=== PATIENT | male | born 1955 | race Caucasian/White ===

== ENCOUNTER 2018-10-12 12:37 | Inpatient (IN) | payer MEDICARE, MEDICAID ==
--- NOTE | 2018-10-12 13:09 | ED ---
Complex/Multi-Sys Presentation - HPI Summary HPI Summary: This patient is a 63 year old male brought in by ambulance from [place] to r/o PE. The patient is allergic to iodine and they did not have the resources to r/ o PE. On exam pt states he is just here to hang out with people and be around them. He denies any new pain or sx at this time although he is wearing NC O2. He does report chronic epigastric pain. The chart states the patient has had SOB for about two days and his O2 sat drops on room air. His chart also states he is on plavix but he states he doesnt think he is taking any medications. The chart states he was also sent for increased confusion, CP, and pallor. When taken off NC in the room patient denies any SOB and his SPO2 drops to 93 - 94 % . The patient does live at a intermediate. LEVEL 5 CAVEAT: Exam limited due to dementia. - History Of Current Complaint Chief Complaint: EDShortnessOfBreath Time Seen by Provider: 10/12/18 12:43 Hx Obtained From: Patient, EMS, Medical Records Onset/Duration: Still Present Timing: Constant Severity Currently: Mild Severity Initially: Mild Associated Signs And Symptoms: Positive: Other - r/o PE and confusion - Allergies/Home Medications Allergies/Adverse Reactions: Allergies Allergy/AdvReac Type Severity Reaction Status Date / Time codeine Allergy Unknown Verified 10/12/18 12:52 Reaction Details Iodine and Iodide Containing Allergy Unknown Verified 10/12/18 12:51 Produc Reaction Details shellfish derived Allergy Unknown Verified 10/12/18 12:52 Reaction Details Home Medications: Home Medications Acetaminophen [Acetaminophen Extra Strength] 1,000 mg PO BID 10/12/18 [History Confirmed 10/12/18] Al Hydrox/Mg Hydrox/Stephane BULK* [Mylanta - BULK BOT*] 30 ml PO Q4HR PRN 10/12/18 [History Confirmed 10/12/18] Albuterol Sulfate [Proventil Hfa] 12.4 gm INH QID PRN 10/12/18 [History Confirmed 10/12/18] Aspirin EC TAB* [Ecotrin EC Low Dose 81 MG*] 81 mg PO DAILY 10/12/18 [History Confirmed 10/12/18] Calcium Polycarbophil TAB* [Fibercon TAB*] 625 mg PO BID 10/12/18 [History Confirmed 10/12/18] Cilostazol TAB* [Pletal TAB*] 50 mg PO BID 10/12/18 [History Confirmed 10/12/18] Clopidogrel TAB* [Plavix TAB*] 75 mg PO DAILY 10/12/18 [History Confirmed ] Docusate CAP* [Colace Cap*] 100 mg PO BID 10/12/18 [History Confirmed 10/12/18] Donepezil TAB* [Aricept 5 MG TAB*] 5 mg PO DAILY 10/12/18 [History Confirmed ] Fluticasone-Salmeterol 250-50* [Advair Diskus 250-50*] 1 puff INH BID 10/12/18 [ History Confirmed 10/12/18] Gabapentin CAP(*) [Neurontin 300 CAP(*)] 300 mg PO TID 10/12/18 [History Confirmed 10/12/18] Neomycin/Polym/Bacit TOP OINT* [Neosporin TOP OINT TUBE*] 1 applic TOPICAL DAILY PRN 10/12/18 [History Confirmed 10/12/18] Polyethylene Glycol 3350* [Miralax*] 17 gm PO DAILY PRN 10/12/18 [History Confirmed 10/12/18] Ranitidine TAB (NF) [Zantac TAB (NF)] 150 mg PO BID 10/12/18 [History Confirmed 10/12/18] Simvastatin TAB(NF) [Zocor(NF)] 10 mg PO BEDTIME 10/12/18 [History Confirmed ] diPHENhydraMINE PO* [Benadryl PO 25 MG TAB*] 25 mg PO BEDTIME PRN 10/12/18 [ History Confirmed 10/12/18] guaiFENesin ER TAB [Mucinex*] 600 mg PO BID PRN 10/12/18 [History Confirmed ] guaiFENesin LIQ* [Robitussin*] 10 ml PO BID PRN 10/12/18 [History Confirmed ] traZODone TAB* [Desyrel TAB*] 25 mg PO BEDTIME 10/12/18 [History Confirmed 10/12] PMH/Surg Hx/FS Hx/Imm Hx Infectious Disease History: Unable to Obtain/Confirm Infectious Disease History: Denies: Traveled Outside the [place] in Last 30 Days - Family History Known Family History: Positive: Unknown - LEVEL 5 CAVEAT: Exam limited due to dementia. - Social History [facility] Review of Systems - ROS Summary Review of Systems Summary: LEVEL 5 CAVEAT: Exam limited due to dementia. Positive: Chest Pain - per chart Positive: Shortness Of Breath - per chart Positive: Other - pallor- per chart Neurological: Other - confusion- per chart All Other Systems Reviewed And Are Negative: No Physical Exam - Summary Physical Exam Summary: Appearance: The patient is well-nourished in no acute distress and in no acute pain. Skin: The skin is warm and dry and skin color reflects adequate perfusion. HEENT: The head is normocephalic and atraumatic. The pupils are equal and reactive. The conjunctivae are clear and without drainage. Nares are patent and without drainage. Mouth reveals moist mucous membranes and the throat is without erythema and exudate. The external ears are intact. The ear canals are patent and without drainage. The tympanic membranes are intact. Neck: The neck is supple with full range of motion and non-tender. There are no carotid bruits. There is no neck vein distension. Respiratory: Chest is non-tender. Lungs are clear to auscultation and breath sounds are symmetrical and equal. Cardiovascular: Heart is regular rate and rhythm. There is no murmur or rub auscultated. There is no peripheral edema and pulses are symmetrical and equal. Abdomen: The abdomen is soft and non-tender. There are normal bowel sounds heard in all four quadrants and there is no organomegaly palpated. Musculoskeletal: There is no back tenderness noted. Extremities are non-tender with full range of motion. There is good capillary refill. There is no peripheral edema or calf tenderness elicited. Neurological: Patient is alert and oriented but mildly confused. The patient has symmetrical motor strength in all four extremities. Cranial nerves are grossly intact. Deep tendon reflexes are symmetrical and equal in all four extremities. Psychiatric: The patient has an appropriate affect and does not exhibit any anxiety or depression. Triage Information Reviewed: Yes Vital Signs On Initial Exam: Initial Vitals Resp 18 10/12/18 12:48 Vital Signs Reviewed: Yes Completion Of Physical Exam Limited Due To: Dementia, Level 5 Diagnostics - Vital Signs Vital Signs Temp Pulse Resp BP Pulse Ox 10/12/18 12:52 98.4 F 86 20 117/73 96 10/12/18 12:50 16 117/73 10/12/18 12:48 18 - Laboratory Lab Statement: Any lab studies that have been ordered have been reviewed, and results considered in the medical decision making process. Complex Multi-Symp Course/Dx Course Of Treatment: Mr. Hernandez is a difficult historian. He was sent to [place] ED with a concern for shortness of breath. He has an allergy to iodine and they were unable to rule out a PE. He is a bit short of breath here and a d-dimer was obtained which is elevated. I agree that he needs to rule out a PE and he may need either a VQ scan or to be pretreated for a CTA. The hospitalists were contacted for admission. - Diagnoses Provider Diagnoses: Respiratory insufficiency Discharge - Sign-Out/Discharge Documenting (check all that apply): Patient Departure - Discharge Plan Condition: Stable Disposition: ADMITTED TO [facility] Referrals: No Primary Care Phys,NOPCP [Primary Care Provider] - - Billing Disposition and Condition Condition: STABLE Disposition: Admitted to [facility] - Attestation Statements Document Initiated by Linibe: Yes Documenting Scribe: Jude Ram Provider For Whom Scribe is Documenting (Include Credential): Rc Pathak MD Scribe Attestation: I, Jude Ram , scribed for Rc Pathak MD on 10/12/18 at 1556. Scribe Documentation Reviewed: Yes Provider Attestation: The documentation as recorded by the Jude dozier accurately reflects the service I personally performed and the decisions made by me, Rc Pathak MD Status of Scribe Document: Viewed
[2018-10-12] MEDS ORDERED: Albuterol/Ipratropium NEB.SOL* Albuterol 2.5 MG/Ipratropium 0.5 MG 3 ML INH ONE (13:25)
[2018-10-12 14:06] LABS: INR 1.17 (0.77-1.02)
[2018-10-12 14:41] LABS: Troponin I 0.03 ng/mL (<0.04)
[2018-10-12 14:43] LABS: CKMB ng/mL 22.7 ng/mL (0.6-6.3)
[2018-10-12 17:36] LABS: ABS Basophils 0 10^3/ul (0-0.2); ABS Eosinophils 0 10^3/ul (0-0.6); ABS Lymphocytes 0.4 10^3/ul (1.0-4.8); ABS Monocytes 1.2 10^3/ul (0-0.8); ABS Neutrophils 4.7 10^3/ul (1.5-7.7); ABS Nucleated RBC 0 10^3/ul; Eosinophil % 0 %; Hematocrit 41 % (42-52); Hemoglobin 13.8 g/dl (14.0-18.0); Mean Corpuscular HGB Conc 34 g/dl (31-36); Mean Corpuscular Hemoglobin 32 pg (27-31); Mean Corpuscular Volume 96 fL (80-94); Mean Platelet Volume 6.7 fL (7.4-10.4); Nucleated Red Blood Cells % 0; Platelet Count 249 10^3/ul (150-450); Red Blood Count 4.33 10^6/ul (4.00-5.40); Red Cell Distribution Width 14 % (10.5-15); White Blood Count 6.3 10^3/ul (3.5-10.8)
[2018-10-12] MEDS ORDERED: Acetaminophen TAB* 325 MG PO PRN ×2 (17:46)
[2018-10-12] MEDS ORDERED: Thiamine IV 100 MG, Folic Acid IV* 1 MG, Multiple Vitamin IV ADULT* 10 ML in D5NS 0.9% ... IV ONE (17:46)
[2018-10-12 17:48] LABS: Troponin I 0.01 ng/mL (<0.04)
[2018-10-12] MEDS ORDERED: Albuterol 2.5 MG/3 ML NEB.SOL* (0.083%) INH PRN (17:50)
[2018-10-12 17:51] LABS: Albumin 4.3 g/dL (3.2-5.2); Albumin/Globulin Ratio 1.2 (1-3); BUN/Creatinine Ratio 19.4 (8-20); Calcium 9.8 mg/dL (8.6-10.3); EGFR African American 132.6 (>60); EGFR Non-African American 109.6 (>60); Globulin 3.5 g/dL (2-4); Potassium 3.9 mmol/L (3.5-5.0); Total Bilirubin 0.5 mg/dL (0.2-1.0); Total Protein 7.8 g/dL (6.4-8.9)
[2018-10-12] MEDS ORDERED: NS 0.9% 1000 ML** 1,000 ML IV.FLUID IV ONE (17:54)
[2018-10-12] MEDS ORDERED: cefTRIAXone VIAL(*) 1,000 MG in NS 0.9% 50 ML* 50 ML IVPB SCH (18:00)
[2018-10-12] MEDS ORDERED: LORazepam TAB(*) 1 MG PO SCH (18:00)
[2018-10-12] MEDS ORDERED: cefTRIAXone(*) 1 GM ADVAN/BAG ONE (18:01)
[2018-10-12] MEDS ORDERED: Vancomycin(*) 1,000 MG in NS 0.9% 250 ML* 250 ML IVPB ONE ×2 (18:06→21:30)
[2018-10-12] MEDS ORDERED: NS 0.9% 1000 ML** 1,000 ML IV SCH (18:15)
[2018-10-12] MEDS ORDERED: Vancomycin(*) 1,000 MG BAG/ADDV IVPB ONE (18:46)
[2018-10-12] MEDS ORDERED: LORazepam INJ* 2 MG/ML 1 ML VIAL IV PUSH ONE (19:07)
--- NOTE | 2018-10-12 20:08 | HP ---
HISTORY AND PHYSICAL: DATE OF ADMISSION: 10/12/18 PRIMARY CARE PHYSICIAN: Dr. Pittman, [place]. ATTENDING PHYSICIAN: Dr. Anni Gutierrez.* (DICTATED BY ESTER ARMSTRONG ) CHIEF COMPLAINT: More confused than usual, tremors, pale. HISTORY OF PRESENT ILLNESS: Mr. Hernandez is a 63-year-old male with past medical history of vascular dementia and depression, who presented to the ER today due to altered mental status. He presented to [facility] last night with similar symptoms last night and was diagnosed with gastritis. He then returned to the ER this morning and they had concern for a PE. The patient is an active gentleman who has not had recent surgeries, travel, or immobilization. He is tachycardic, but also presents with CBC that shows elevated bands suggestive of a potential infection. The patient who resides at [facility] in [place] is able to leave the facility as he pleases. There has been hearsay that he may be going out into the community and consuming alcohol. The patient is a very poor historian. He has no complaints today. He states he had a headache this morning which is now gone. He denies chest pain, shortness of breath. He denies exposure to ill contacts. This was confirmed by caretakers at his residence. He denies nausea, vomiting, diarrhea. He denies cough and hemoptysis. At [facility], the patient had a chest x-ray, the conclusion was no acute findings. Currently, numerous tests are being run to determine the cause of the patient's intermittent tachycardia and tremors. Tests include CBC, CMP, blood cultures, CRP, ESR, lactic acid, troponins, alcohol, urine drug screen, and a urinalysis. The patient's confusion and vascular dementia has made it difficult to interview him and he is a poor historian. PAST MEDICAL HISTORY: Vascular dementia, depression, unable to get a more detailed past medical history. PAST SURGICAL HISTORY: Unable to obtain. HOME MEDICATIONS: 1. Aspirin 81 mg p.o. daily. 2. Acetaminophen 1000 mg p.o. b.i.d. 3. Trazodone 50 mg p.o. at bedtime. 4. Clopidogrel 75 mg p.o. daily. 5. Cilostazol 50 mg p.o. b.i.d. 6. Gabapentin 300 mg p.o. t.i.d. 7. Simvastatin 10 mg p.o. at bedtime. 8. Fiber 1 cap p.o. b.i.d. 9. Docusate sodium 100 mg p.o. b.i.d. 10. Fluticasone/salmeterol 250/50 one inhalation b.i.d. 11. Diphenhydramine 25 mg p.o. p.r.n. sleep. 12. Ranitidine 150 mg p.o. b.i.d. 13. Donepezil hydrochloride 5 mg p.o. at bedtime. ALLERGIES: CODEINE, IODINE and IODINE CONTAINING PRODUCTS, and SHELLFISH. FAMILY HISTORY: Unable to obtain. SOCIAL HISTORY: Tobacco and alcohol use as well as recreational drug use is unknown. It is presumed that the patient does smoke and he may also use alcohol. He lives in an assisted living home in [facility]. He is unable to appoint a decision maker at this time. REVIEW OF SYSTEMS: A 10-point review of systems was performed and all the pertinent positives and negatives are in the HPI. All other systems are negative. PHYSICAL EXAMINATION GENERAL: Mr. Hernandez is a well-developed man who is pacing his room. He is easily distracted and difficult to have a conversation with. He is in no acute distress. He is tremulous in bilateral hands. VITAL SIGNS: Temperature 98.4, heart rate 92, respiratory rate 27, oxygen saturation 98%, blood pressure is 115/69. HEENT: Pupils are equally round and reactive to light and accommodation. Sclerae without icterus. Hearing appears grossly intact. NECK: No lymphadenopathy. Nontender to palpation. RESPIRATORY: Symmetrical chest expansion. No use of accessory muscles. Lungs clear to auscultation. No rhonchi, wheezes, or rales. CARDIOVASCULAR: S1 and S2 are present. Regular rate and rhythm. No murmurs, rubs, or gallops. No JVD. ABDOMEN: Bowel sounds in all 4 quadrants. Abdomen is soft and nontender to palpation. No hepatosplenomegaly. EXTREMITIES: Skin is warm and smooth bilaterally. No edema. No clubbing or cyanosis. No calf tenderness. Negative Ruel's sign. Radial and pedal pulses 2+ bilaterally. B/l UE are tremulous. MUSCULOSKELETAL: Full range of motion without pain or deformities. NEUROLOGIC: The patient is unable to provide last name or date of . He is unaware of his location nor can he give today's date. He does move all extremities and his gait is steady without impairment. DIAGNOSTIC STUDIES/LAB DATA: Diagnostic studies, awaiting. Multiple laboratory studies, INR 1.17. D-dimer 639. ASSESSMENT AND PLAN: Mr. Hernandez is a 63-year-old male with a past medical history that is outlined above, but is missing some details. He presents to the ER today from [place] due to the fact that staff from his assisted living home states he is "more confused than usual." The patient will be admitted observation/inpatient for: 1. Altered mental status. A cause is not identified as of yet, but pulmonary embolus is not at the top of the differential at the time, due to no recent surgery nor recent travel, and high level of activity. He denies calf tenderness. Ruel's sign is negative. The patient is intermittently tachycardic, but also is very active in his room. Lab work from [facility] revealed a band count that was elevated at 22. The patient's sudden onset in altered mental status may potentially be caused by alcohol use, although this is unsure. The patient does have a tremor. As of now, we are awaiting multiple lab results. The patient will be placed on WAM protocol as a precaution. Troponins have been ordered and the home where the patient was living states that he had complained of chest pain earlier. He states that he has no chest pain as of right now. 2. Systemic inflammatory response syndrome. The patient meets systemic inflammatory response syndrome criteria with an elevated respiratory rate and an elevated heart rate. Source of infection will be explored. Blood cultures, urinalysis, CRP, ESR, have all been ordered. 3. Code status. The patient is full code. 4. DVT prophylaxis: The patient is low risk. Compression TEDs ordered. TIME SPENT: Approximately 60 minutes were spent on this admission, greater than half that time was spent with the patient or discussing the patient with assisted living in order to obtain a thorough history, performing physical exam , and reviewing the plan of care. The case been reviewed with my attending, Dr. Gutierrez, who is in agreement with the plan of care. ESTER ARMSTRONG [id number]/[facility] #: [id number] [place]
[2018-10-12] MEDS ORDERED: methylPREDNISolone 125 MG* 2 ML VIAL IV ONE (20:30)
--- NOTE | 2018-10-12 20:37 | PN ---
Hospitalist Progress Note Date of Service: 10/12/18 Called to bedside in ed to eval patient at 2000. Asked By Dr Gutierrez and Anny Lindsay to place orders for patient for admission at 1800. at 1900 patient combative with staff and not cooperative taking of o2 given 1 mg ativan. Suspect multifactorial delirium given hx of reported etoh abuse and hx dementia and hx now of underlying infectio, Patient examined again at 2030 noted to be hypoxic 90 percent on 10 liters, wheezing on exam noted. and chest ct noted to have multifocal PNA, will ordered neb now and give iv steroids now as well, will give dulera as well, will place on vapotherm, transfer to icu,
--- NOTE | 2018-10-12 20:55 | PN ---
Sepsis Event Evaluation Date of Evaluation: 10/12/18 Time of Evaluation: 20:52 Current Stage of Sepsis: Sepsis Vital Signs - Last 12 Hours: Vital Signs - 12 hr Temp Pulse Resp BP Pulse Ox 10/12/18 20:41 22 10/12/18 20:20 117 108/77 88 10/12/18 20:13 103 80 10/12/18 20:11 114/85 10/12/18 19:47 100.0 F 10/12/18 19:45 100.0 F 86 22 122/79 97 10/12/18 19:20 22 10/12/18 15:00 92 10/12/18 14:49 115/69 10/12/18 14:31 81 137/69 98 10/12/18 14:00 104 27 10/12/18 13:20 83 22 94/80 95 10/12/18 13:00 90 23 99 10/12/18 12:52 98.4 F 86 20 117/73 96 10/12/18 12:50 16 117/73 10/12/18 12:48 18 Lactic Acid: 10/12/18 16:23 Lactic Acid 4.1 H* - Cardiopulmonary Exam Respiratory: - - wheezing with tachypnea, requiring high flow oxygen Cardiovascular: - - regular tachycardia - Peripheral Pulse Exam Radial Pulses: Bilateral Normal Pedal Pulses: Bilateral Normal - Skin Exam Skin Exam: Normal Turgor - [place] Coma Scale Best Eye Response: 3 - To Speech Best Motor Response: 5 - Purposeful Movement Best Verbal Response: 4 - Confused Coma Scale Total: 12 Assess/Plan/Problems-Billing Assessment: Sepsis flacaley due to pneumonia with history of alcohol use: continue with IV fluids, will change antibiotics to zosyn. He became very agitated, might be alcohol withdrawal, received ativan prior to my evaluation, which made him drowsy. will monitor on high flow oxygen.
[2018-10-12] MEDS ORDERED: Docusate CAP* 100 MG PO SCH (21:00)
[2018-10-12] MEDS ORDERED: Albuterol/Ipratropium NEB.SOL* Albuterol 2.5 MG/Ipratropium 0.5 MG 3 ML INH SCH (21:00)
[2018-10-12] MEDS ORDERED: Azithromycin IV(*) 500 MG in NS 0.9% 250 ML* 250 ML IVPB SCH ×2 (21:00→22:00)
[2018-10-12] MEDS ORDERED: Piperacillin/Tazobac ADVAN(*) 3.375 GM in NS 0.9% 100 ML* 100 ML IVPB SCH (21:00)
[2018-10-12] MEDS ORDERED: traZODone TAB* 50 MG TAB PO SCH (21:00)
[2018-10-12] MEDS ORDERED: methylPREDNISolone 125 MG* 2 ML VIAL ONE (21:07)
[2018-10-12] MEDS ORDERED: Succinylcholine* 20 MG/ML 10 ML VIAL ONE (21:30)
[2018-10-12] MEDS ORDERED: KETAMINE HCL* 50 MG/ML 10 ML VIAL ONE (21:30)
[2018-10-12] MEDS ORDERED: Etomidate* 2 MG/ML 20 ML VIAL (40 MG) ONE (21:30)
[2018-10-12] MEDS ORDERED: Midazolam* 1 MG/ML 10 ML VIAL (10 MG) ONE (21:30)
--- NOTE | 2018-10-12 21:49 | ED ---
Progress - Progress Note Progress Note: I was asked by the hospitalist to see the patient for consideration of endotracheal intubation. The patient has been developing progressively worsening respiratory distress and altered mental status despite a trial of high flow nasal cannula oxygen. He presents now altered, lethargic but somewhat agitated and in obvious respiratory distress. Definitive airway control was indicated. After preoxygenation, the patient was intubated by rapid sequence induction with etomidate and succinylcholine. The glidescope was used to visualize the cords. Excellent visualization was obtained and the 8.0 tube was passed without difficulty. Breath sounds are equal, and ET CO2 device indicates good placement. The patient is being prepared to move to the ICU, and portable chest x-ray will be obtained there and reviewed by the hospitalist for proper tube placement. Course/Dx - Course Course Of Treatment: Mr. Hernandez is a difficult historian. He was sent to [place] ED with a concern for shortness of breath. He has an allergy to iodine and they were unable to rule out a PE. He is a bit short of breath here and a d-dimer was obtained which is elevated. I agree that he needs to rule out a PE and he may need either a VQ scan or to be pretreated for a CTA. The hospitalists were contacted for admission. - Diagnoses Provider Diagnoses: Respiratory insufficiency, Respiratory failure Discharge - Sign-Out/Discharge Documenting (check all that apply): Patient Departure - Discharge Plan Condition: Stable Disposition: ADMITTED TO [facility] - Billing Disposition and Condition Condition: STABLE Disposition: Admitted to [facility] - Attestation Statements Document Initiated by Scribe: No
[2018-10-12] MEDS ORDERED: Zosyn per Pharmacy* NOTE FOLLOW UP PRN (21:56)
[2018-10-12] MEDS ORDERED: ZOSYN 3.375 GM x ONE DOSE over 30 miuntes IVPB ×2 (22:00)
[2018-10-12] MEDS: Mometasone/Formoter 200/5 MDI INH SCH (23:05)
[2018-10-12 23:18] LABS: Urine Appearance Clear; Urine Bacteria Absent (Absent); Urine Bilirubin Negative (Negative); Urine Blood 3+ (Negative); Urine Color Yellow; Urine Glucose 3+(>=500 mg/dL) (Negative); Urine Ketones 1+ (Negative); Urine Nitrite Negative (Negative); Urine Protein 1+(30 mg/dL) (Negative); Urine Red Blood Cell 3+(>10/hpf) (Absent); Urine Specific Gravity 1.015 (1.010-1.030); Urine Squamous Epithelial Cell Present (Absent); Urine Urobilinogen Negative (Negative); Urine White Blood Cell Trace(0-5/hpf) (Absent)
[2018-10-12] MEDS ORDERED: NS 0.9% 1000 ML** 1,000 ML IV ONE (23:37)
[2018-10-12 23:44] LABS: Barbiturates Urine Screen None Detected (None Detect); Benzodiazepine Urine Screen Presumptive Positive (None Detect); Urine Cannabinoids Screen None Detected (None Detect)
[2018-10-12] MEDS: methylPREDNISolone 125 MG* 2 ML VIAL IV SCH (23:46)
[2018-10-13] MEDS ORDERED: Docusate LIQ* 100 MG/10 ML UDC ONE (00:11)
[2018-10-13] MEDS: Cilostazol TAB* 100 MG PO SCH ×3 (00:24→20:12)
[2018-10-13] MEDS: Famotidine TAB* 20 MG PO SCH ×3 (00:26→20:13)
[2018-10-13] MEDS: Atorvastatin* 10 MG TAB PO SCH ×2 (00:26→20:16)
[2018-10-13] MEDS: Gabapentin CAP(*) 300 MG PO SCH ×4 (00:32→20:13)
[2018-10-13 00:49] LABS: Activated Partial Thrombo Time 30.2 seconds (26.0-36.3); INR 1.18 (0.77-1.02)
[2018-10-13] MEDS ORDERED: Docusate LIQ* 100 MG/10 ML UDC PO SCH ×2 (01:10→09:00)
[2018-10-13] MEDS ORDERED: NS 0.9% 250 ML* 246 ML with Norepinephrine VIAL* 4 MG IV SCH ×2 (02:00)
[2018-10-13] MEDS: Norepinephrine VIAL* 4 MG in NS 0.9% 250 ML* 246 ML IV SCH ×3 (02:00→19:09)
[2018-10-13] MEDS: Chlorhexidine MOUTHWASH 0.12%* 15 ML UDC TOPICAL SCH ×7 (02:20→23:53)
[2018-10-13] MEDS ORDERED: Albuterol/Ipratropium NEB.SOL* Albuterol 2.5 MG/Ipratropium 0.5 MG 3 ML INH SCH (03:00)
[2018-10-13] MEDS ORDERED: Albuterol/Ipratropium NEB.SOL* Albuterol 2.5 MG/Ipratropium 0.5 MG 3 ML INH PRN (03:33)
[2018-10-13] MEDS: methylPREDNISolone 125 MG* 2 ML VIAL IV SCH ×2 (04:54→13:10)
[2018-10-13] MEDS: ZOSYN 3.375 GM Q8H per EXTENDED INFUSION IVPB SCH ×4 (04:54→13:10)
[2018-10-13 04:58] LABS: ABS Basophils 0 10^3/ul (0-0.2); ABS Eosinophils 0 10^3/ul (0-0.6); ABS Lymphocytes 0.2 10^3/ul (1.0-4.8); ABS Monocytes 0.7 10^3/ul (0-0.8); ABS Neutrophils 5.1 10^3/ul (1.5-7.7); ABS Nucleated RBC 0 10^3/ul; Eosinophil % 0 %; Hematocrit 34 % (42-52); Hemoglobin 11.1 g/dl (14.0-18.0); Lymphocyte % 3.7 %; Mean Corpuscular HGB Conc 33 g/dl (31-36); Mean Corpuscular Hemoglobin 32 pg (27-31); Mean Corpuscular Volume 96 fL (80-94); Mean Platelet Volume 6.8 fL (7.4-10.4); Nucleated Red Blood Cells % 0.1; Platelet Count 202 10^3/ul (150-450); Red Cell Distribution Width 14 % (10.5-15)
[2018-10-13] MEDS: Heparin VIAL(*) 5000 UNITS/ML VIAL (FIVE THOUSAND) SUBCUT SCH ×3 (05:02→22:11)
[2018-10-13 05:13] LABS: BUN/Creatinine Ratio 16.4 (8-20); Calcium 8.2 mg/dL (8.6-10.3); EGFR African American 180.9 (>60); EGFR Non-African American 149.5 (>60); Potassium 3.1 mmol/L (3.5-5.0)
[2018-10-13] MEDS: Mometasone/Formoter 200/5 MDI INH SCH ×2 (07:06→20:20)
[2018-10-13] MEDS: Propofol* 100 ML IV SCH ×3 (08:00→20:47)
[2018-10-13] MEDS: Donepezil TAB* 5 MG PO SCH (08:02)
[2018-10-13] MEDS: Thiamine TAB* 100 MG TAB PO SCH (08:02)
[2018-10-13] MEDS: Folic Acid TAB* 1 MG PO SCH (08:03)
[2018-10-13] MEDS: Clopidogrel TAB* 75 MG PO SCH (08:03)
[2018-10-13] MEDS ORDERED: Aspirin EC TAB* 81 MG TAB.EC PO SCH (09:00)
[2018-10-13] MEDS ORDERED: Multivitamins/Minerals TAB PO SCH (09:00)
--- NOTE | 2018-10-13 16:30 | PN ---
Date of Service: 10/13/18 Critical Care Services: 63 y/o with "vascular dementia" admitted last night with altered mentation ( agitated delirium) - was intubated because of concern about respiratory status but major problem continues to be altered mentation. No evidence of drug OD, but does have Hx ETOH. Off propofol, patient continues to be unresponsive and slightly agitated. Vital Signs: Temp Pulse Resp BP SpO2 FiO2 97.9 F 66 21 75/50 94 40 Physical Exam: Gen:Unresponsive off propofol HEENT: pupils midposition and reactive. Corneals reactive. No ocular clonus Lungs: clear Extremities:No cyanosis or edema Neuro: Moves all extremities. No cranial nerve deficits. Fluid Balance (Past 24 Hours): 10/13/18 06:59 Intake Total 6857.9 Output Total 562 Balance 6295.9 Weight 134 lb 1.6 oz Intake: IV Fluids 6277.4 Banana Bag 1011 NS (0.9%) 1838 NS to Maintain IV Patency 28.4 IVPB 404 ABX - AZITHROMYCIN 269 ABX - ZOSYN 135 Medicated IV 176.5 CC - Norepinephrine/ 120 Levophed CC - Propofol/Diprivan 56.5 Output: Arora 562 Labs: 10/12/18 10/12/18 10/12/18 12:55 16:23 16:23 WBC 6.3 RBC 4.33 Hgb 13.8 L Hct 41 L MCV 96 H MCH 32 H MCHC 34 RDW 14 Plt Count 249 MPV 6.7 L Neut % (Auto) 75.1 Lymph % (Auto) 6.0 [place] % (Auto) 18.9 Eos % (Auto) 0 Baso % (Auto) 0 Absolute Neuts (auto) 4.7 Absolute Lymphs (auto) 0.4 L Absolute Monos (auto) 1.2 H Absolute Eos (auto) 0 Absolute Basos (auto) 0 Absolute Nucleated RBC 0 Nucleated RBC % 0 ESR INR (Anticoag Therapy) APTT Patient Temperature ABG pH ABG pH (Temp Correct) ABG pCO2 ABG pCO2 (Temp Corrct ABG pO2 ABG pO2 (Temp Correct ABG HCO3 ABG O2 Saturation ABG Base Excess Respiration Rate O2 Delivery Device Ventilator Type Vent Mode FiO2 Inspiratory Time PEEP Pressure Support Pressure Control EPAP IPAP BiPAP Sodium 136 Potassium 3.9 Chloride 100 L Carbon Dioxide 22 Anion Gap 14 H BUN 14 Creatinine 0.72 Est GFR ( Amer) 132.6 Est GFR (Non-Af Amer) 109.6 BUN/Creatinine Ratio 19.4 Glucose 153 H Lactic Acid Calcium 9.8 Total Bilirubin 0.50 AST 94 H ALT 32 Alkaline Phosphatase 67 Total Creatine Kinase 815 H CK-MB (CK-2) 22.7 H Troponin I 0.03 0.01 C-Reactive Protein Total Protein 7.8 Albumin 4.3 Globulin 3.5 Albumin/Globulin Ratio 1.2 Cortisol 18.56 Urine Color Urine Appearance Urine pH Ur Specific [place] Urine Protein Urine Ketones Urine Blood Urine Nitrate Urine Bilirubin Urine Urobilinogen Ur Leukocyte Esterase Urine WBC (Auto) Urine RBC (Auto) Ur Squamous Epith Cells Urine Bacteria Urine Glucose Urine Opiates Screen Ur Barbiturates Screen Ur Phencyclidine Scrn Ur Amphetamines Screen U Benzodiazepines Scrn Urine Cocaine Screen U Cannabinoids Screen Serum Alcohol 10/12/18 10/12/18 10/12/18 16:23 16:23 16:23 WBC RBC Hgb Hct MCV MCH MCHC RDW Plt Count MPV Neut % (Auto) Lymph % (Auto) [place] % (Auto) Eos % (Auto) Baso % (Auto) Absolute Neuts (auto) Absolute Lymphs (auto) Absolute Monos (auto) Absolute Eos (auto) Absolute Basos (auto) Absolute Nucleated RBC Nucleated RBC % ESR 85 H INR (Anticoag Therapy) APTT Patient Temperature ABG pH ABG pH (Temp Correct) ABG pCO2 ABG pCO2 (Temp Corrct ABG pO2 ABG pO2 (Temp Correct ABG HCO3 ABG O2 Saturation ABG Base Excess Respiration Rate O2 Delivery Device Ventilator Type Vent Mode FiO2 Inspiratory Time PEEP Pressure Support Pressure Control EPAP IPAP BiPAP Sodium Potassium Chloride Carbon Dioxide Anion Gap BUN Creatinine Est GFR ( Amer) Est GFR (Non-Af Amer) BUN/Creatinine Ratio Glucose Lactic Acid 4.1 H* Calcium Total Bilirubin AST ALT Alkaline Phosphatase Total Creatine Kinase CK-MB (CK-2) Troponin I C-Reactive Protein 277.89 H Total Protein Albumin Globulin Albumin/Globulin Ratio Cortisol Urine Color Urine Appearance Urine pH Ur Specific [place] Urine Protein Urine Ketones Urine Blood Urine Nitrate Urine Bilirubin Urine Urobilinogen Ur Leukocyte Esterase Urine WBC (Auto) Urine RBC (Auto) Ur Squamous Epith Cells Urine Bacteria Urine Glucose Urine Opiates Screen Ur Barbiturates Screen Ur Phencyclidine Scrn Ur Amphetamines Screen U Benzodiazepines Scrn Urine Cocaine Screen U Cannabinoids Screen Serum Alcohol 10/12/18 10/12/18 10/12/18 16:23 22:57 23:00 WBC RBC Hgb Hct MCV MCH MCHC RDW Plt Count MPV Neut % (Auto) Lymph % (Auto) [place] % (Auto) Eos % (Auto) Baso % (Auto) Absolute Neuts (auto) Absolute Lymphs (auto) Absolute Monos (auto) Absolute Eos (auto) Absolute Basos (auto) Absolute Nucleated RBC Nucleated RBC % ESR INR (Anticoag Therapy) APTT ABG pH 7.25 L ABG pCO2 47 H ABG pO2 149 H ABG HCO3 19.7 ABG O2 Saturation 100.0 H ABG Base Excess -6.7 L O2 Delivery Device vent Ventilator Type 550 Vent Mode cmv FiO2 80 Sodium Potassium Chloride Carbon Dioxide Anion Gap BUN Creatinine Est GFR ( Amer) Est GFR (Non-Af Amer) BUN/Creatinine Ratio Glucose Lactic Acid 0.8 Calcium Total Bilirubin AST ALT Alkaline Phosphatase Total Creatine Kinase CK-MB (CK-2) Troponin I C-Reactive Protein Total Protein Albumin Globulin Albumin/Globulin Ratio Cortisol Urine Color Urine Appearance Urine pH Ur Specific [place] Urine Protein Urine Ketones Urine Blood Urine Nitrate Urine Bilirubin Urine Urobilinogen Ur Leukocyte Esterase Urine WBC (Auto) Urine RBC (Auto) Ur Squamous Epith Cells Urine Bacteria Urine Glucose Urine Opiates Screen Ur Barbiturates Screen Ur Phencyclidine Scrn Ur Amphetamines Screen U Benzodiazepines Scrn Urine Cocaine Screen U Cannabinoids Screen Serum Alcohol < 10 10/12/18 10/12/18 10/13/18 23:06 23:06 00:22 WBC RBC Hgb Hct MCV MCH MCHC RDW Plt Count MPV Neut % (Auto) Lymph % (Auto) [place] % (Auto) Eos % (Auto) Baso % (Auto) Absolute Neuts (auto) Absolute Lymphs (auto) Absolute Monos (auto) Absolute Eos (auto) Absolute Basos (auto) Absolute Nucleated RBC Nucleated RBC % ESR INR (Anticoag Therapy) 1.18 H APTT 30.2 Patient Temperature ABG pH ABG pH (Temp Correct) ABG pCO2 ABG pCO2 (Temp Corrct ABG pO2 ABG pO2 (Temp Correct ABG HCO3 ABG O2 Saturation ABG Base Excess Respiration Rate O2 Delivery Device Ventilator Type Vent Mode FiO2 Inspiratory Time PEEP Pressure Support Pressure Control EPAP IPAP BiPAP Sodium Potassium Chloride Carbon Dioxide Anion Gap BUN Creatinine Est GFR ( Amer) Est GFR (Non-Af Amer) BUN/Creatinine Ratio Glucose Lactic Acid Calcium Total Bilirubin AST ALT Alkaline Phosphatase Total Creatine Kinase CK-MB (CK-2) Troponin I C-Reactive Protein Total Protein Albumin Globulin Albumin/Globulin Ratio Cortisol Urine Color Yellow Urine Appearance Clear Urine pH 6.0 Ur Specific [place] 1.015 Urine Protein 1+(30 mg/dl) A Urine Ketones 1+ A Urine Blood 3+ A Urine Nitrate Negative Urine Bilirubin Negative Urine Urobilinogen Negative Ur Leukocyte Esterase Negative Urine WBC (Auto) Trace(0-5/hpf) Urine RBC (Auto) 3+(>10/hpf) A Ur Squamous Epith Cells Present A Urine Bacteria Absent Urine Glucose 3+(>=500 mg/dl) A Urine Opiates Screen None detected Ur Barbiturates Screen None detected Ur Phencyclidine Scrn None detected Ur Amphetamines Screen None detected U Benzodiazepines Scrn Presumptive positive A Urine Cocaine Screen None detected U Cannabinoids Screen None detected Serum Alcohol 10/13/18 10/13/18 04:50 04:50 WBC 6.0 RBC 3.50 L Hgb 11.1 L Hct 34 L MCV 96 H MCH 32 H MCHC 33 RDW 14 Plt Count 202 MPV 6.8 L Neut % (Auto) 83.9 Lymph % (Auto) 3.7 [place] % (Auto) 12.3 Eos % (Auto) 0 Baso % (Auto) 0.1 Absolute Neuts (auto) 5.1 Absolute Lymphs (auto) 0.2 L Absolute Monos (auto) 0.7 Absolute Eos (auto) 0 Absolute Basos (auto) 0 Absolute Nucleated RBC 0 Nucleated RBC % 0.1 ESR INR (Anticoag Therapy) APTT Patient Temperature ABG pH ABG pH (Temp Correct) ABG pCO2 ABG pCO2 (Temp Corrct ABG pO2 ABG pO2 (Temp Correct ABG HCO3 ABG O2 Saturation ABG Base Excess Respiration Rate O2 Delivery Device Ventilator Type Vent Mode FiO2 Inspiratory Time PEEP Pressure Support Pressure Control EPAP IPAP BiPAP Sodium 137 Potassium 3.1 L Chloride 109 Carbon Dioxide 19 L Anion Gap 9 BUN 9 Creatinine 0.55 L Est GFR ( Amer) 180.9 Est GFR (Non-Af Amer) 149.5 BUN/Creatinine Ratio 16.4 Glucose 240 H Lactic Acid Calcium 8.2 L Total Bilirubin AST ALT Alkaline Phosphatase Total Creatine Kinase CK-MB (CK-2) Troponin I C-Reactive Protein Total Protein Albumin Globulin Albumin/Globulin Ratio Cortisol Urine Color Urine Appearance Urine pH Ur Specific [place] Urine Protein Urine Ketones Urine Blood Urine Nitrate Urine Bilirubin Urine Urobilinogen Ur Leukocyte Esterase Urine WBC (Auto) Urine RBC (Auto) Ur Squamous Epith Cells Urine Bacteria Urine Glucose Urine Opiates Screen Ur Barbiturates Screen Ur Phencyclidine Scrn Ur Amphetamines Screen U Benzodiazepines Scrn Urine Cocaine Screen U Cannabinoids Screen Serum Alcohol Studies: Vascular ultrasound both legs - no DVT Nutrition: None today Impression: Altered mental status - No evidence for serotonin syndrome, neuroleptic malignant syndrome, TTP, stroke, or drug OD - also does not look like ETOH withdrawal, meningoencephalitis, or nonconvulsive status. Plan: If not improved by tomorrow, will have neurology service evaluate. Critical Care Time: 50 minutes
[2018-10-13] MEDS: NS 0.9% 1000 ML** 1,000 ML IV SCH (17:07)
[2018-10-14] MEDS: Propofol* 100 ML IV SCH ×5 (02:00→19:56)
[2018-10-14] MEDS: Norepinephrine VIAL* 4 MG in NS 0.9% 250 ML* 246 ML IV SCH ×3 (02:58→19:03)
[2018-10-14] MEDS: Chlorhexidine MOUTHWASH 0.12%* 15 ML UDC TOPICAL SCH ×5 (05:11→19:03)
[2018-10-14] MEDS: Heparin VIAL(*) 5000 UNITS/ML VIAL (FIVE THOUSAND) SUBCUT SCH ×3 (05:12→21:10)
[2018-10-14] MEDS: NS 0.9% 1000 ML** 1,000 ML IV SCH ×2 (05:13→18:28)
[2018-10-14 05:25] LABS: Hematocrit 28 % (42-52); Hemoglobin 9.2 g/dl (14.0-18.0); Mean Corpuscular HGB Conc 33 g/dl (31-36); Mean Corpuscular Hemoglobin 32 pg (27-31); Mean Corpuscular Volume 96 fL (80-94); Mean Platelet Volume 7.1 fL (7.4-10.4); Platelet Count 199 10^3/ul (150-450); Red Blood Count 2.91 10^6/ul (4.00-5.40); Red Cell Distribution Width 15 % (10.5-15); White Blood Count 5.3 10^3/ul (3.5-10.8)
[2018-10-14 05:45] LABS: Albumin 2.4 g/dL (3.2-5.2); BUN/Creatinine Ratio 25.5 (8-20); Calcium 8.6 mg/dL (8.6-10.3); EGFR African American 197.4 (>60); EGFR Non-African American 163.1 (>60); Globulin 2.3 g/dL (2-4); Potassium 3.1 mmol/L (3.5-5.0); Total Bilirubin 0.2 mg/dL (0.2-1.0); Total Protein 4.7 g/dL (6.4-8.9)
[2018-10-14] MEDS: Mometasone/Formoter 200/5 MDI INH SCH ×2 (07:06→21:56)
[2018-10-14] MEDS: Folic Acid TAB* 1 MG PO SCH (08:53)
[2018-10-14] MEDS: Cilostazol TAB* 100 MG PO SCH ×2 (08:53→21:09)
[2018-10-14] MEDS: Famotidine TAB* 20 MG PO SCH ×2 (08:53→21:10)
[2018-10-14] MEDS: Thiamine TAB* 100 MG TAB PO SCH (08:53)
[2018-10-14] MEDS: Gabapentin CAP(*) 300 MG PO SCH ×3 (08:53→21:10)
[2018-10-14] MEDS: Donepezil TAB* 5 MG PO SCH (08:53)
[2018-10-14] MEDS: Clopidogrel TAB* 75 MG PO SCH (08:53)
[2018-10-14] MEDS: KCL 20 MEQ/100 ML IVPREMIX* 20 MEQ/100 ML BAG IV SCH ×2 (14:36→17:29)
--- NOTE | 2018-10-14 16:19 | PN ---
Date of Service: 10/14/18 Critical Care Services: Continues to be agitated, and propofol requirement is increased. Vital Signs: Temp Pulse Resp BP SpO2 FiO2 97.0 F 50 16 95/63 96 30 Physical Exam: Gen: Unresponsive now, on propofol HEENT:Pupils midposition and sluggishly reactive Lungs: Clear Extremities: No cyanosis or edema. Neuro: No abnormal movements. Fluid Balance (Past 24 Hours): 10/14/18 06:59 Intake Total 3096 Output Total 952 Balance 2144 Weight 137 lb Intake: IV Fluids 2349 Banana Bag NS (0.9%) 2263 NS to Maintain IV Patency 86 IVPB 193 ABX - AZITHROMYCIN ABX - ZOSYN 193 Medicated IV 474 CC - Norepinephrine/ 249 Levophed CC - Propofol/Diprivan 225 Intake, OG Tube Irrigate 80 Amount OGT 80 Output: Arora 952 Labs: Laboratory Results - last 24 hr 10/14/18 10/14/18 05:05 05:05 WBC 5.3 RBC 2.91 L Hgb 9.2 L Hct 28 L MCV 96 H MCH 32 H MCHC 33 RDW 15 Plt Count 199 MPV 7.1 L Sodium 141 Potassium 3.1 L Chloride 114 H Carbon Dioxide 21 L Anion Gap 6 BUN 13 Creatinine 0.51 L Glucose 150 H Calcium 8.6 Magnesium 2.0 Total Bilirubin 0.20 AST 46 H ALT 26 Alkaline Phosphatase 46 Total Protein 4.7 L Albumin 2.4 L Studies: None today Nutrition: None Impression: Continued problem with altered mental status - unclear as to the etiology. Plan: 1. Send ammonia level 2. Consult neurology 3. Continue sedation with propofol for now and periodically lighten sedation to assess mental status. Critical Care Time: 40 minutes
[2018-10-14 17:12] LABS: ABS Basophils 0 10^3/ul (0-0.2); ABS Eosinophils 0 10^3/ul (0-0.6); ABS Lymphocytes 0.7 10^3/ul (1.0-4.8); ABS Monocytes 0.9 10^3/ul (0-0.8); ABS Neutrophils 4.9 10^3/ul (1.5-7.7); ABS Nucleated RBC 0 10^3/ul; Eosinophil % 0 %; Hematocrit 29 % (42-52); Hemoglobin 9.7 g/dl (14.0-18.0); Lymphocyte % 11.4 %; Mean Corpuscular HGB Conc 33 g/dl (31-36); Mean Corpuscular Hemoglobin 32 pg (27-31); Mean Corpuscular Volume 96 fL (80-94); Nucleated Red Blood Cells % 0; Platelet Count 230 10^3/ul (150-450); Red Blood Count 3.08 10^6/ul (4.00-5.40); Red Cell Distribution Width 15 % (10.5-15); White Blood Count 6.5 10^3/ul (3.5-10.8)
[2018-10-14] MEDS: Atorvastatin* 10 MG TAB PO SCH (21:10)
--- NOTE | 2018-10-14 22:23 | CONS ---
CONSULTATION NOTE: DATE OF CONSULT: 10/14/18 PATIENT OF: Dr. Herzog and Dr. Pittman, [place]. HISTORY: This is a 63-year-old man I am asked to evaluate for change in mental status. He has a past history of vascular dementia and apparent alcohol abuse. He presented on 10/12/18 after being seen the night before at [facility] with a diagnosis of gastritis. He then returned. He is a very poor historian. He had some headache that had resolved and he had confusion. He is placed on the [place] protocol. He has elevated heart rate and sed rate, and he was intubated for respiratory insufficiency. He was thought to possibly have pneumonia with a history of alcohol abuse, was thought to have alcohol withdrawal. He had been on propofol, which was intermittently stopped, and he is agitated but does not fully wake up. PAST MEDICAL HISTORY: He has past medical history of vascular dementia and depression. PAST SURGICAL HISTORY: Unable to obtain a surgical history. MEDICATIONS: Home medicines include: 1. Aspirin 81 mg daily. 2. Trazodone 50 mg at bedtime. 3. Plavix 75 mg daily. 4. Cilostazol 50 mg b.i.d. 5. Gabapentin 300 t.i.d. 6. Simvastatin 10 mg at bedtime. 7. Fluticasone/salmeterol 250/50, one inhalation b.i.d. 8. Benadryl 25 mg p.r.n. 9. Ranitidine 150 b.i.d. 10. Donepezil 5 mg at bedtime. ALLERGIES: He is allergic to CODEINE, IODINE, and SHELLFISH. FAMILY HISTORY: Unable to obtain. SOCIAL HISTORY: He has abused both tobacco and alcohol. His recreational drug use is unknown. REVIEW OF SYSTEMS: Unable to be obtained. When he first came in he was easily distracted and with tremors in both hands. PHYSICAL EXAM: Temperature 97, he has been afebrile throughout his stay, heart rate 50, respirations 16, blood pressure 95/63. He is intubated, on propofol, but when the propofol is turned off, he quickly becomes arousable and will move all extremities with power. He tries to pull out his ET tube and turns to sit at the side of the bed. Strength is at least 5/5. He somewhat resists eye opening, but does not open his eyes and he does not follow commands. Pupils were 2 mm and sluggish. He appeared to have full extraocular movements without propofol, but this is hard to be sure of because of his agitation. Reflexes were 1. Toes were mute. Chest: Clear. Cardiovascular: Regular rate and rhythm. Abdomen: Soft. DIAGNOSTIC STUDIES/LAB DATA: I reviewed his CT scan, which showed some diffuse atrophy including in his cerebellum. He had a bandemia apparently at [place], but here his white count has been 6.3 with neutrophil count of 83. His sed rate has been 85. His hematocrit dropped from 41 to 28 over the course of 2 days' time. He has an INR of 1.18, PTT of 30. His blood gas was pH 7.25, PCO2 of 47 on the 10/12/18, PO2 of 149. Chemistries show bicarb of 19, potassium 3.1 , creatinine 0.55, glucose 240, calcium 8.2, lactic acid was initially 4.1, currently is 0.8. His CPK was 815, C-reactive protein was 277, cortisole was 18.6. UA had 3+ blood, negative bacteria, 3+ glucoses, drug tox screen is negative other than benzodiazepine. His serum alcohol was less than 10. ASSESSMENT AND PLAN: I discussed with Dr. Herzog that this most likely is a toxic metabolic problem, possibly in somebody who has alcoholism and is status post withdrawal. He needs an ammonia level checked. It is possible that he could have some hepatic insufficiency even though his LFTs were normal. If he has gastrointestinal bleed that would also put him at risk for elevated ammonia. He has semi-purposeful movements and is agitated shortly after the propofol is stopped, and it does not look like he is having seizures and he is on propofol. If this does not improve, we would consider getting an EEG. He would also need an MRI scan, but this would look for more likely chronic issues to assess the extent of his vascular dementia versus alcoholism, but it would be unlikely to find acute things if the CT scan did not. If his ammonia is not elevated, I discussed that he could conceivably have meningoencephalitis. I think that this is unlikely as he does not have a fever or elevated white count , although his sed rate is elevated. I discussed that Dr. Herzog does a spinal tap then, in addition to routine studies, cryptococcal antigen and herpes PCR, as well as getting a VDRL. Thank you for sharing his case. [id number]/[facility] #: [id number] ALFONSO
[2018-10-15] MEDS: Chlorhexidine MOUTHWASH 0.12%* 15 ML UDC TOPICAL SCH ×7 (00:02→22:52)
[2018-10-15] MEDS: Norepinephrine VIAL* 4 MG in NS 0.9% 250 ML* 246 ML IV SCH ×2 (03:10→12:07)
[2018-10-15] MEDS: Propofol* 100 ML IV SCH ×4 (04:32→21:25)
[2018-10-15] MEDS: Heparin VIAL(*) 5000 UNITS/ML VIAL (FIVE THOUSAND) SUBCUT SCH ×3 (05:05→22:52)
[2018-10-15 05:42] LABS: Hematocrit 29 % (42-52); Hemoglobin 9.5 g/dl (14.0-18.0); Mean Corpuscular HGB Conc 33 g/dl (31-36); Mean Corpuscular Hemoglobin 32 pg (27-31); Mean Corpuscular Volume 96 fL (80-94); Mean Platelet Volume 7.1 fL (7.4-10.4); Platelet Count 249 10^3/ul (150-450); Red Cell Distribution Width 15 % (10.5-15); White Blood Count 5.5 10^3/ul (3.5-10.8)
[2018-10-15] MEDS: NS 0.9% 1000 ML** 1,000 ML IV SCH ×2 (07:46→21:11)
[2018-10-15] MEDS: Mometasone/Formoter 200/5 MDI INH SCH (07:55)
[2018-10-15] MEDS: Gabapentin CAP(*) 300 MG PO SCH ×3 (09:13→21:07)
[2018-10-15] MEDS: Famotidine TAB* 20 MG PO SCH ×2 (09:13→21:09)
[2018-10-15] MEDS: Cilostazol TAB* 100 MG PO SCH ×2 (09:13→21:07)
[2018-10-15] MEDS: Folic Acid TAB* 1 MG PO SCH (09:13)
[2018-10-15] MEDS: Donepezil TAB* 5 MG PO SCH (09:13)
[2018-10-15] MEDS: Thiamine TAB* 100 MG TAB PO SCH (09:13)
[2018-10-15] MEDS: Clopidogrel TAB* 75 MG PO SCH (09:13)
[2018-10-15] MEDS ORDERED: Lidocaine 1% INJ* 10 MG/ML 30 ML SDV ONE (10:48)
--- NOTE | 2018-10-15 13:41 | PN ---
Date of Service: 10/15/18 Critical Care Services: Mental status slightly better today - when off propofol, occasionally follows commands. Vital Signs: Temp Pulse Resp BP SpO2 FiO2 97.7 F 64 17 91/61 91 40 Physical Exam: Gen:Unresponsive (on propofol) HEENT:Pupils small but reactive Lungs:Clear Extremities:No cyanosis or edema Fluid Balance (Past 24 Hours): 10/15/18 06:59 Intake Total 2701 Output Total 837 Balance 1864 Weight 141 lb Intake: IV Fluids 1980 Banana Bag NS (0.9%) 1789 NS to Maintain IV Patency 192 IVPB 219 ABX - AZITHROMYCIN ABX - ZOSYN Potassium Chloride 219 Medicated IV 501 CC - Norepinephrine/ Levophed CC - Propofol/Diprivan 501 Intake, OG Tube Irrigate Amount OGT Output: Arora 837 Labs: Laboratory Results - last 24 hr 10/14/18 10/14/18 10/14/18 05:05 16:33 17:04 WBC 6.5 RBC 3.08 L Hgb 9.7 L Hct 29 L MCV 96 H MCH 32 H MCHC 33 RDW 15 Plt Count 230 MPV 7.0 L Neut % (Auto) 75.0 Lymph % (Auto) 11.4 [place] % (Auto) 13.6 Eos % (Auto) 0 Baso % (Auto) 0 Absolute Neuts (auto) 4.9 Absolute Lymphs (auto) 0.7 L Absolute Monos (auto) 0.9 H Absolute Eos (auto) 0 Absolute Basos (auto) 0 Absolute Nucleated RBC 0 Nucleated RBC % 0 Differential Comment Sodium 141 Potassium 3.1 L Chloride 114 H Carbon Dioxide 21 L Anion Gap 6 BUN 13 Creatinine 0.51 L Est GFR ( Amer) 197.4 Est GFR (Non-Af Amer) 163.1 BUN/Creatinine Ratio 25.5 H Glucose 150 H Calcium 8.6 Magnesium 2.0 Total Bilirubin 0.20 AST 46 H ALT 26 Alkaline Phosphatase 46 Ammonia 71 C-Reactive Protein Total Protein 4.7 L Albumin 2.4 Globulin 2.3 Albumin/Globulin Ratio 1.0 10/15/18 10/15/18 05:14 11:18 WBC 5.5 RBC 3.00 L Hgb 9.5 L Hct 29 L MCV 96 H MCH 32 H MCHC 33 RDW 15 Plt Count 249 MPV 7.1 L Neut % (Auto) Lymph % (Auto) [place] % (Auto) Eos % (Auto) Baso % (Auto) Absolute Neuts (auto) Absolute Lymphs (auto) Absolute Monos (auto) Absolute Eos (auto) Absolute Basos (auto) Absolute Nucleated RBC Nucleated RBC % Differential Comment Sodium Potassium Chloride Carbon Dioxide Anion Gap BUN Creatinine Est GFR ( Amer) Est GFR (Non-Af Amer) BUN/Creatinine Ratio Glucose Calcium Magnesium Total Bilirubin AST ALT Alkaline Phosphatase Ammonia C-Reactive Protein 40.63 Total Protein Albumin Globulin Albumin/Globulin Ratio Studies: None today Nutrition: None - plan to start tube feedings Impression: Mental status slightly improved - doubt meningoencephalitis because of absence of fever and leukocytosis, and CRP decreasing from 277 to 40. Also doubt hepatic encephalopathy despite elevated ammonium. Most likely Dx is ETOH withdrawal. Plan: 1. Start tube feedings. 2. Continue assessing mental status when off propofol. 3. If no improvement in mental status, will get EEG. 4. No need for MRI at this time. Critical Care Time: 40 minutes
[2018-10-15] MEDS: Atorvastatin* 10 MG TAB PO SCH (21:08)
--- NOTE | 2018-10-15 23:55 | PN ---
NEUROLOGICAL FOLLOWUP NOTE: DATE OF VISIT: 10/15/18 PATIENT OF: Dr. Herzog. HISTORY: This is a 63-year-old man, I am seeing in followup. He is still intubated, but his mental status has been improved. When he was off propofol earlier, he was able to long-term open his eyes and he was able to follow commands including wiggling toes on both sides and raising his right and left head independently. He is now sedated again with propofol that has been turned off, but he is still sleeping. MEDICATIONS: Include: 1. Lipitor. 2. Pletal. 3. Plavix. 4. Aricept. 5. Gabapentin p.o. 6. Propofol. 7. Thiamine. PHYSICAL EXAMINATION: On exam, temperature 97.5, pulse 48, respirations 16, blood pressure 103/61. Chest: Clear. Cardiovascular: Regular rate and rhythm. Neurologic: He is moving all extremities, but is not awake at this point. DIAGNOSTIC AND LABORATORY DATA: His CRP was repeated, it went from 277 down to 40 at this point. White count 5.5, hematocrit 29. ASSESSMENT AND PLAN: Mr. Hernandez is now not agitated when he is coming off the propofol and is able to follow some simple, non-midline commands at times. He is clearly improving. Hopefully, he will be able to come off sedation and be extubated in the near future given his clinical improvement as well as the normal white count and the fact that he is afebrile. I agree that he does not need to be tapped at this point and that this may be alcohol related. I recommend continuing him being treated for his alcoholism including with the thiamine. Thank you for sharing his case. [id number]/[facility] #: [id number] [facility] HOSPITALElisabet
[2018-10-16] MEDS: Propofol* 100 ML IV SCH ×3 (03:14→16:10)
[2018-10-16] MEDS: Chlorhexidine MOUTHWASH 0.12%* 15 ML UDC TOPICAL SCH ×5 (03:56→20:44)
[2018-10-16] MEDS: Heparin VIAL(*) 5000 UNITS/ML VIAL (FIVE THOUSAND) SUBCUT SCH ×3 (06:17→21:50)
--- NOTE | 2018-10-16 09:32 | PN ---
Date of Service: 10/16/18 Critical Care Services: 63 M Current complains Overnight events Acute issues during this hospitalization: prolonged ventilation, ETOH withdrawal, hyperammonemia Mental status slightly better today - when off propofol, occasionally follows commands. Vital Signs: Temp Pulse Resp BP SpO2 FiO2 98.1 F 47 16 84/55 98 40 10/16/18 09:01 10/16/18 09:01 10/16/18 09:00 10/16/18 09:00 10/16/18 09:01 10/16 08:00 Physical Exam: Gen:Unresponsive (on propofol) HEENT:Pupils small but reactive Lungs:Clear Extremities:No cyanosis or edema Fluid Balance (Past 24 Hours): I= O= Net Intake & Output 10/14/18 10/15/18 10/16/18 10/17/18 06:59 06:59 06:59 06:59 Intake Total 3096 2701 2769 Output Total 452 872 1969 290 Balance 2144 1864 1469 -290 Weight 137 lb 14.4 oz 141 lb 3.2 oz 148 lb Intake: IV Fluids 2348 1980 204 NS (0.9%) 2263 1789 2004 NS to Maintain IV Patency 86 192 45 IVPB 193 219 ABX - ZOSYN 193 Potassium Chloride 219 Medicated IV 474 501 420 CC - Norepinephrine/ 249 Levophed CC - Propofol/Diprivan 225 501 420 Tube Feeding 300 Intake, OG Tube Irrigate 80 Amount OGT 80 Output: Arora 874 103 1210 290 Other: Date of Last Bowel 10/16/18 Movement # Bowel Movements 1 Estimated Stool Amount Small ADLs: Meal Record Start: 10/12/18 19: 45 Freq: DAILY@0900,1400,1800 Status: Complete Protocol: Created 10/12/18 19:45 System (Rec: 10/12/18 19:45 System MED-M04) ADLs: Meal Record Start: 10/12/18 22: 16 Freq: 09,13,18 Status: Active Protocol: Created 10/12/18 22:16 VLJ2866 (Rec: 10/12/18 22:16 LZB7675 ICU-C12) Document 10/13/18 09:00 HJS2330 (Rec: 10/13/18 12:28 CSJ3323 ICU-C16) Document 10/13/18 13:00 ZJB1257 (Rec: 10/13/18 16:36 HJA6962 ICU-C16) Document 10/13/18 18:00 WCE7128 (Rec: 10/13/18 19:17 AAD2073 ICU-C16) Document 10/14/18 09:00 WAE1549 (Rec: 10/14/18 09:23 ZLY4788 ICU-C15) Document 10/14/18 13:00 SDV2080 (Rec: 10/14/18 13:18 JMT9820 ICU-C15) Document 10/14/18 18:00 DOF6766 (Rec: 10/14/18 18:42 ZBG7079 ICU-C15) Document 10/15/18 09:00 NKV5760 (Rec: 10/15/18 09:29 ORS0738 ICU-C16) Document 10/15/18 13:00 SNV9650 (Rec: 10/15/18 13:44 DUQ6070 ISDEMO-M03 ) Document 10/15/18 18:00 LZY8109 (Rec: 10/15/18 18:18 JTN5483 ISDEMO-M03 ) Intake and Output Start: 10/12/18 12: 56 Freq: Status: Active Protocol: Created 10/12/18 12:56 System (Rec: 10/12/18 12:56 System EDRM-C16) Intake and Output Start: 10/12/18 19: 45 Freq: DAILY@0600,1400,2200 Status: Complete Protocol: Created 10/12/18 19:45 System (Rec: 10/12/18 19:45 System MED-M04) Intake and Output Start: 10/12/18 22: 16 Freq: Q1HR Status: Active Protocol: Created 10/12/18 22:16 TLB0875 (Rec: 10/12/18 22:16 UPO1189 ICU-C12) Document 10/12/18 23:00 EFJ4294 (Rec: 10/13/18 00:46 QBZ0299 ISDEMO-M03 ) Document 10/13/18 00:15 WRG0095 (Rec: 10/13/18 00:46 YIZ5598 ISDEMO-M03 ) Document 10/13/18 01:06 RBY6918 (Rec: 10/13/18 01:06 WRV4414 ICU-C12) Document 10/13/18 02:00 AQR4447 (Rec: 10/13/18 02:31 FJB1911 ICU-C12) Document 10/13/18 03:03 CWA4112 (Rec: 10/13/18 03:04 VVD2759 ICU-C12) Document 10/13/18 03:54 LKB4945 (Rec: 10/13/18 03:54 MVC6602 ICU-C12) Document 10/13/18 05:00 HJQ4840 (Rec: 10/13/18 05:08 TFZ7818 ICU-C12) Document 10/13/18 06:07 BDA3985 (Rec: 10/13/18 06:11 ZZO2290 ICU-C12) Document 10/13/18 07:00 SME3698 (Rec: 10/13/18 07:21 YPT7109 ICU-C16) Document 10/13/18 08:00 VFV7610 (Rec: 10/13/18 10:29 ADI2438 ICU-C16) Document 10/13/18 09:00 CGN6673 (Rec: 10/13/18 10:29 VYJ8690 ICU-C16) Document 10/13/18 10:00 XOI8885 (Rec: 10/13/18 10:30 KZX9375 ICU-C16) Document 10/13/18 11:00 FBO5424 (Rec: 10/13/18 12:29 DXC5420 ICU-C16) Document 10/13/18 12:00 PBX5312 (Rec: 10/13/18 12:51 ELL0416 ICU-C16) Document 10/13/18 13:00 CJG6728 (Rec: 10/13/18 13:28 IBB5759 ICU-C16) Document 10/13/18 13:28 ZZF7870 (Rec: 10/13/18 13:28 ONT9297 ICU-C16) Document 10/13/18 15:00 YMJ5973 (Rec: 10/13/18 15:13 QZN7827 ISDEMO-M03 ) Document 10/13/18 16:00 HLH3028 (Rec: 10/13/18 16:03 JTO0037 ICU-C16) Document 10/13/18 17:00 NVY3127 (Rec: 10/13/18 17:00 AJJ8227 ICU-C16) Document 10/13/18 18:00 LDE9717 (Rec: 10/13/18 19:17 CRQ6481 ICU-C16) Document 10/13/18 19:00 WDT9577 (Rec: 10/13/18 19:17 RAW1093 ICU-C16) Document 10/13/18 20:00 HWS8727 (Rec: 10/13/18 21:09 UEH5196 ICU-C16) Document 10/13/18 21:00 IED0621 (Rec: 10/13/18 21:09 NBZ1088 ICU-C16) Document 10/13/18 22:00 PNC0050 (Rec: 10/13/18 22:08 CDG5824 ICU-C16) Document 10/13/18 23:00 EEE1198 (Rec: 10/13/18 23:02 GCC1075 ICU-C16) Document 10/13/18 23:53 OGD9784 (Rec: 10/13/18 23:53 VRF3233 ICU-C16) Document 10/14/18 01:00 ZGO3604 (Rec: 10/14/18 02:02 MNZ5349 ICU-C16) Document 10/14/18 02:00 DDN4174 (Rec: 10/14/18 02:02 TZV2210 ICU-C16) Document 10/14/18 02:58 PCB9718 (Rec: 10/14/18 02:58 HDM5827 ICU-C16) Document 10/14/18 04:00 ZMT2535 (Rec: 10/14/18 04:12 ZBG7643 ICU-C16) Document 10/14/18 05:00 UMY1918 (Rec: 10/14/18 05:17 KLV0263 [facility]-M[facility] ) Document 10/14/18 06:00 TGI9754 (Rec: 10/14/18 06:36 KOR1603 ICU-C16) Document 10/14/18 07:00 UNF5887 (Rec: 10/14/18 07:59 KUB7359 ICU-C15) Document 10/14/18 08:00 WME3015 (Rec: 10/14/18 08:12 YKM4261 ICU-C15) Document 10/14/18 09:00 DSZ1202 (Rec: 10/14/18 09:23 QOK2361 ICU-C15) Document 10/14/18 10:00 TZP8330 (Rec: 10/14/18 10:24 VWL8317 ICU-C15) Document 10/14/18 11:00 SJX8940 (Rec: 10/14/18 11:35 XUD9693 ICU-C15) Document 10/14/18 12:00 NAA7363 (Rec: 10/14/18 12:21 XBD7337 ICU-C15) Document 10/14/18 13:00 RTJ7536 (Rec: 10/14/18 13:18 CIS1143 ICU-C15) Document 10/14/18 14:00 UIK3806 (Rec: 10/14/18 15:34 BQK7856 ICU-C15) Document 10/14/18 15:00 MVQ4103 (Rec: 10/14/18 15:34 NSF9883 ICU-C15) Document 10/14/18 16:00 EMP1992 (Rec: 10/14/18 16:36 MWN4618 ICU-C15) Document 10/14/18 17:00 LFQ0298 (Rec: 10/14/18 18:38 CJO0608 ICU-C15) Document 10/14/18 18:00 UYP6218 (Rec: 10/14/18 18:38 OIS4525 ICU-C15) Document 10/14/18 19:00 QOU3761 (Rec: 10/14/18 20:29 SMD6132 ICU-C15) Document 10/14/18 20:00 GZP3554 (Rec: 10/14/18 20:29 GDX4803 ICU-C15) Document 10/14/18 21:00 KBG4403 (Rec: 10/14/18 21:17 TCX8551 ICU-C15) Document 10/14/18 21:57 NQS6431 (Rec: 10/14/18 21:57 SKE5306 ICU-C15) Document 10/14/18 23:00 DRB8681 (Rec: 10/15/18 00:27 LGN5528 ICU-C15) Document 10/15/18 00:00 WQN0393 (Rec: 10/15/18 00:27 DNJ8415 ICU-C15) Document 10/15/18 01:00 JSI1102 (Rec: 10/15/18 02:50 FBP3806 ICU-C15) Document 10/15/18 02:00 YOA8591 (Rec: 10/15/18 02:50 UKY0080 ICU-C15) Document 10/15/18 03:00 KOL2727 (Rec: 10/15/18 03:10 IGJ7631 ICU-C15) Document 10/15/18 03:48 LLD3505 (Rec: 10/15/18 03:52 VYC3759 ICU-C15) Document 10/15/18 05:00 XOS0490 (Rec: 10/15/18 05:13 HPT9102 ISDEMO-M03 ) Document 10/15/18 06:00 FZH8733 (Rec: 10/15/18 06:05 SDL5599 ICU-C15) Document 10/15/18 06:56 MVG0651 (Rec: 10/15/18 06:56 MRL1541 ICU-C15) Document 10/15/18 08:00 WCT1809 (Rec: 10/15/18 09:28 PTS1305 ICU-C16) Document 10/15/18 09:00 QKT1091 (Rec: 10/15/18 09:28 XCF5052 ICU-C16) Document 10/15/18 10:00 MKJ2931 (Rec: 10/15/18 11:21 GWP2803 ICU-C16) Document 10/15/18 11:00 GKD6848 (Rec: 10/15/18 11:21 NZW4769 ICU-C16) Document 10/15/18 12:00 LUB6341 (Rec: 10/15/18 13:44 MCA4970 ISDEMO-M03 ) Document 10/15/18 13:00 HEB3455 (Rec: 10/15/18 13:44 UEC7632 ISDEMO-M03 ) Document 10/15/18 13:44 EQH6388 (Rec: 10/15/18 13:44 RCR0850 ISDEMO-M03 ) Document 10/15/18 14:58 IZI9422 (Rec: 10/15/18 14:58 ELF1636 ISDEMO-M03 ) Document 10/15/18 16:00 RMJ4658 (Rec: 10/15/18 16:54 VGW3670 ICU-C16) Document 10/15/18 17:00 SLH0814 (Rec: 10/15/18 18:18 GRI3589 ISDEMO-M03 ) Document 10/15/18 18:00 LUD0628 (Rec: 10/15/18 18:18 HMB4101 ISDEMO-M03 ) Document 10/15/18 19:00 QNR7717 (Rec: 10/15/18 20:00 FCU5491 ISDEMO-M03 ) Document 10/15/18 20:00 WNF0751 (Rec: 10/15/18 20:00 ZOP1902 ISDEMO-M03 ) Document 10/15/18 21:00 KSW2168 (Rec: 10/15/18 21:06 IOZ1805 ISDEMO-M03 ) Document 10/15/18 22:00 EYR8183 (Rec: 10/15/18 22:02 MWQ8760 ISDEMO-M03 ) Document 10/15/18 22:57 QIY9300 (Rec: 10/15/18 22:57 RJD6337 ISDEMO-M03 ) Document 10/16/18 00:00 TKT5294 (Rec: 10/16/18 00:08 TDS7858 ICU-C16) Document 10/16/18 01:00 ASI1183 (Rec: 10/16/18 01:09 IYL2021 ICU-C16) Document 10/16/18 02:00 JDE9634 (Rec: 10/16/18 03:07 QZF1630 ICU-C16) Document 10/16/18 03:00 FDO9438 (Rec: 10/16/18 03:07 MKF0623 ICU-C16) Document 10/16/18 04:00 MMJ0311 (Rec: 10/16/18 04:03 EPO3975 ISDEMO-M03 ) Document 10/16/18 05:00 ETK0330 (Rec: 10/16/18 05:10 LVV3528 ISDEMO-M03 ) Document 10/16/18 06:00 ATU2840 (Rec: 10/16/18 06:03 YEW6944 ISDEMO-M03 ) Document 10/16/18 08:23 HLJ6807 (Rec: 10/16/18 08:24 FFH8797 ISDEMO-M03 ) Document 10/16/18 09:04 NBK8939 (Rec: 10/16/18 09:05 VWI2447 ICU-C10) Labs: Laboratory Results - last 24 hr 10/15/18 10/16/18 10/16/18 11:18 05:20 05:20 Ammonia 75 H C-Reactive Protein 40.63 H 26.58 H Studies: CXR 10/16: Possible LLL opacity CXR 10/12: Suboptimal CXR as view of LLL is not included. Grossly mild interstitial opacities Nutrition: TF: Jevity with goal of 40cc/h Impression: # Acute encephalopathy # Acute alcohol withdrawal # Acute respiratory failure requiring prolong mechanical ventilation Plan: # Acute encephalopathy # Hx/o vascular dementia # Acute alcohol withdrawal ETOH w/d vs ICU delirium vs acute hepatic encephalopathy Neuro recs noted Improving off propofol + BM - Will start seroquel 25 mg BID - agree with donepezil, gabapentin, Cilatozal, and plavix - on thiamine and folic acid - if mental status does not improve by tomorrow AM will consider decreasing gabapentin and possibly starting lactulose - ok to keep on propofol for the night. Plan for SWT in the am # Acute respiratory failure requiring prolonged mechanical ventilation due to mental status Tolerated SBT today. Currently, tolerating PS10 - continue current vent support on PS. Ok to return to full support when indicated DVT PPx: Hep sq GI: H2B Prognosis: guarded Critical care issues: acute encephalopathy, mechanical vent Critical Care Time: 45 minutes
[2018-10-16] MEDS: QUEtiapine TAB* 25 MG PO SCH ×3 (11:53→20:47)
[2018-10-16] MEDS: Folic Acid TAB* 1 MG PO SCH (12:58)
[2018-10-16] MEDS: Clopidogrel TAB* 75 MG PO SCH (12:58)
[2018-10-16] MEDS: Famotidine TAB* 20 MG PO SCH ×2 (12:59→20:47)
[2018-10-16] MEDS: Donepezil TAB* 5 MG PO SCH (12:59)
[2018-10-16] MEDS: Cilostazol TAB* 100 MG PO SCH ×2 (12:59→20:46)
[2018-10-16] MEDS: Thiamine TAB* 100 MG TAB PO SCH (12:59)
[2018-10-16] MEDS: Gabapentin CAP(*) 300 MG PO SCH ×3 (14:44→20:47)
[2018-10-16] MEDS: Atorvastatin* 10 MG TAB PO SCH (20:45)
[2018-10-17] MEDS: Chlorhexidine MOUTHWASH 0.12%* 15 ML UDC TOPICAL SCH ×4 (00:01→12:23)
[2018-10-17] MEDS: Propofol* 100 ML IV SCH (02:15)
[2018-10-17] MEDS: Heparin VIAL(*) 5000 UNITS/ML VIAL (FIVE THOUSAND) SUBCUT SCH ×3 (06:40→22:26)
[2018-10-17] MEDS: Cilostazol TAB* 100 MG PO SCH ×2 (09:12→22:22)
[2018-10-17] MEDS: Gabapentin CAP(*) 300 MG PO SCH (09:13)
[2018-10-17] MEDS: Thiamine TAB* 100 MG TAB PO SCH (09:13)
[2018-10-17] MEDS: Famotidine TAB* 20 MG PO SCH ×2 (09:13→22:22)
[2018-10-17] MEDS: Donepezil TAB* 5 MG PO SCH (09:13)
[2018-10-17] MEDS: Folic Acid TAB* 1 MG PO SCH (09:13)
[2018-10-17] MEDS: QUEtiapine TAB* 25 MG PO SCH ×2 (09:13→22:22)
[2018-10-17] MEDS: Clopidogrel TAB* 75 MG PO SCH (09:13)
--- NOTE | 2018-10-17 09:36 | PN ---
Date of Service: 10/17/18 Critical Care Services: 63 M with hx/o CVA with resultant vascular dementia, chronic alcohol abuse being managed in the ICU for acute encephalopathy and acute respiratory failure requiring intubation and mechanical ventilation DOA: 10/12/18. Intubated since 10/12 No significant overnight events. He was on propofol overnight. Now off. Patient continues to be drowsy. He follows commands intermittently. He is tolerating SBT and T-piece. Vital Signs: Temp Pulse Resp BP SpO2 FiO2 98.8 F 61 9 84/66 100 60 10/17/18 08:31 10/17/18 08:31 10/17/18 08:00 10/17/18 08:31 10/17/18 08:31 10/17 04:31 Physical Exam: Gen:NAD. Drowsy. Follows commands intermittently. HEENT:NCAT, STFE, neck midline. ETT in oral orifice Lungs:Clear to auscultation bilaterally Cardiac: +S1S2, RRR Abdomen:SNTND, +BS Extremities:No cyanosis or edema Neuro:Drowsy but easily arousable. No focal neuro deficits Fluid Balance (Past 24 Hours): I= O= Net Intake & Output 10/15/18 10/16/18 10/17/18 10/18/18 06:59 06:59 06:59 06:59 Intake Total 2701 2769 899.7 Output Total 837 1300 2405 125 Balance 1864 1469 -1505.3 -125 Weight 141 lb 3.2 oz 148 lb 147 lb 1.6 oz Intake: IV Fluids 1980 2048 439.8 NS (0.9%) 1788 2003 320 NS to Maintain IV Patency 192 45 51 Potassium Chloride 68.8 IVPB 219 Potassium Chloride 219 Medicated IV 501 420 159.9 CC - Propofol/Diprivan 501 420 159.9 Oral 0 Tube Feeding 300 300 Output: Arora 837 1300 2405 125 Other: Date of Last Bowel 10/16/18 Movement # Bowel Movements 1 Estimated Stool Amount Small ADLs: Meal Record Start: 10/12/18 19: 45 Freq: DAILY@0900,1400,1800 Status: Complete Protocol: Created 10/12/18 19:45 System (Rec: 10/12/18 19:45 System MED-M04) ADLs: Meal Record Start: 10/12/18 22: 16 Freq: 09,13,18 Status: Active Protocol: Created 10/12/18 22:16 ZHK2204 (Rec: 10/12/18 22:16 RNL6226 ICU-C12) Document 10/13/18 09:00 PYR0173 (Rec: 10/13/18 12:28 WIM3579 ICU-C16) Document 10/13/18 13:00 ZCE0404 (Rec: 10/13/18 16:36 QYB8863 ICU-C16) Document 10/13/18 18:00 LLH8809 (Rec: 10/13/18 19:17 JLU4298 ICU-C16) Document 10/14/18 09:00 OTW3791 (Rec: 10/14/18 09:23 AVR9983 ICU-C15) Document 10/14/18 13:00 EJI9925 (Rec: 10/14/18 13:18 MWE5989 ICU-C15) Document 10/14/18 18:00 HVQ4929 (Rec: 10/14/18 18:42 GBF5594 ICU-C15) Document 10/15/18 09:00 NSU9253 (Rec: 10/15/18 09:29 LIM3918 ICU-C16) Document 10/15/18 13:00 ALW1921 (Rec: 10/15/18 13:44 LBO2775 ISDEMO-M03 ) Document 10/15/18 18:00 QLP0615 (Rec: 10/15/18 18:18 USA1421 ISDEMO-M03 ) Document 10/16/18 17:47 XXZ1969 (Rec: 10/16/18 17:47 GJP4870 ISDEMO-M03 ) Intake and Output Start: 10/12/18 12: 56 Freq: Status: Active Protocol: Created 10/12/18 12:56 System (Rec: 10/12/18 12:56 System EDRM-C16) Intake and Output Start: 10/12/18 19: 45 Freq: DAILY@0600,1400,2200 Status: Complete Protocol: Created 10/12/18 19:45 System (Rec: 10/12/18 19:45 System MED-M04) Intake and Output Start: 10/12/18 22: 16 Freq: Q1HR Status: Active Protocol: Created 10/12/18 22:16 CPF2373 (Rec: 10/12/18 22:16 BWY4619 ICU-C12) Document 10/12/18 23:00 AHG5558 (Rec: 10/13/18 00:46 MAR1972 ISDEOR-M03 ) Document 10/13/18 00:15 QGJ4200 (Rec: 10/13/18 00:46 BNM2918 ISDEMO-M03 ) Document 10/13/18 01:06 XSM9303 (Rec: 10/13/18 01:06 VVH0633 ICU-C12) Document 10/13/18 02:00 OJR8048 (Rec: 10/13/18 02:31 NNB1303 ICU-C12) Document 10/13/18 03:03 YAS0165 (Rec: 10/13/18 03:04 WHK8203 ICU-C12) Document 10/13/18 03:54 IYM1553 (Rec: 10/13/18 03:54 PAU3374 ICU-C12) Document 10/13/18 05:00 YNZ2493 (Rec: 10/13/18 05:08 BYQ1517 ICU-C12) Document 10/13/18 06:07 MHR2584 (Rec: 10/13/18 06:11 UUF6707 ICU-C12) Document 10/13/18 07:00 VTF4875 (Rec: 10/13/18 07:21 GZO7443 ICU-C16) Document 10/13/18 08:00 KBE2795 (Rec: 10/13/18 10:29 DTB7737 ICU-C16) Document 10/13/18 09:00 GGN1017 (Rec: 10/13/18 10:29 GQW0905 ICU-C16) Document 10/13/18 10:00 KXZ5008 (Rec: 10/13/18 10:30 LRQ8567 ICU-C16) Document 10/13/18 11:00 VSN6741 (Rec: 10/13/18 12:29 UJP0983 ICU-C16) Document 10/13/18 12:00 MPQ5964 (Rec: 10/13/18 12:51 COW4259 ICU-C16) Document 10/13/18 13:00 JXF6782 (Rec: 10/13/18 13:28 SJG1837 ICU-C16) Document 01/25/19 13:28 HNB4665 (Rec: 10/13/18 13:28 YNS8245 ICU-C16) Document 10/13/18 15:00 LWL3764 (Rec: 10/13/18 15:13 ZTM9893 ISDEMO-M03 ) Document 10/13/18 16:00 VAW5712 (Rec: 10/13/18 16:03 DOL8129 ICU-C16) Document 10/13/18 17:00 EBW0812 (Rec: 10/13/18 17:00 OER2105 ICU-C16) Document 10/13/18 18:00 PNH9843 (Rec: 10/13/18 19:17 BSS1278 ICU-C16) Document 10/13/18 19:00 XSU9535 (Rec: 10/13/18 19:17 HYU8776 ICU-C16) Document 10/13/18 20:00 QHD8212 (Rec: 10/13/18 21:09 PKI2497 ICU-C16) Document 10/13/18 21:00 IMB9847 (Rec: 10/13/18 21:09 AGC7672 ICU-C16) Document 10/13/18 22:00 KPN8319 (Rec: 10/13/18 22:08 OMJ2269 ICU-C16) Document 10/13/18 23:00 YBL7764 (Rec: 10/13/18 23:02 CIP5327 ICU-C16) Document 10/13/18 23:53 EBR4027 (Rec: 10/13/18 23:53 YWD9277 ICU-C16) Document 10/14/18 01:00 UAY1065 (Rec: 10/14/18 02:02 IPH2833 ICU-C16) Document 10/14/18 02:00 KLR2132 (Rec: 10/14/18 02:02 KUD4081 ICU-C16) Document 10/14/18 02:58 UKC9851 (Rec: 10/14/18 02:58 GPV4022 ICU-C16) Document 10/14/18 04:00 HOZ1836 (Rec: 10/14/18 04:12 JDR4238 ICU-C16) Document 10/14/18 05:00 CWX5461 (Rec: 10/14/18 05:17 AOF6831 ISDEMO-M03 ) Document 10/14/18 06:00 WHB5794 (Rec: 10/14/18 06:36 ECP9239 ICU-C16) Document 10/14/18 07:00 NMD8537 (Rec: 10/14/18 07:59 IKH4238 ICU-C15) Document 10/14/18 08:00 MHT0189 (Rec: 10/14/18 08:12 MYV7310 ICU-C15) Document 10/14/18 09:00 ZEV3632 (Rec: 10/14/18 09:23 UBE3793 ICU-C15) Document 10/14/18 10:00 YZB3903 (Rec: 10/14/18 10:24 PJJ8407 ICU-C15) Document 10/14/18 11:00 VRF3111 (Rec: 10/14/18 11:35 SRP4703 ICU-C15) Document 10/14/18 12:00 ETB6077 (Rec: 10/14/18 12:21 OQL4338 ICU-C15) Document 10/14/18 13:00 WSI2741 (Rec: 10/14/18 13:18 CQU2217 ICU-C15) Document 10/14/18 14:00 WSO6390 (Rec: 10/14/18 15:34 AFM0075 ICU-C15) Document 10/14/18 15:00 QRT5203 (Rec: 10/14/18 15:34 CQA0734 ICU-C15) Document 10/14/18 16:00 PXP7287 (Rec: 10/14/18 16:36 AFS1698 ICU-C15) Document 10/14/18 17:00 DIN1237 (Rec: 10/14/18 18:38 RMI1017 ICU-C15) Document 10/14/18 18:00 XWK2314 (Rec: 10/14/18 18:38 FFS9006 ICU-C15) Document 10/14/18 19:00 FZW4764 (Rec: 10/14/18 20:29 MAW0329 ICU-C15) Document 10/14/18 20:00 OSA9827 (Rec: 10/14/18 20:29 ZTJ4031 ICU-C15) Document 10/14/18 21:00 BUS1078 (Rec: 10/14/18 21:17 DKB7416 ICU-C15) Document 10/14/18 21:57 QGI1261 (Rec: 10/14/18 21:57 BTT5425 ICU-C15) Document 10/14/18 23:00 NYQ6746 (Rec: 10/15/18 00:27 SST0161 ICU-C15) Document 10/15/18 00:00 VSM7438 (Rec: 10/15/18 00:27 LXC4877 ICU-C15) Document 10/15/18 01:00 RQL7960 (Rec: 10/15/18 02:50 AFV3575 ICU-C15) Document 10/15/18 02:00 QNA8558 (Rec: 10/15/18 02:50 HAA8767 ICU-C15) Document 10/15/18 03:00 BUZ9042 (Rec: 10/15/18 03:10 NIA1835 ICU-C15) Document 10/15/18 03:48 NTZ2106 (Rec: 10/15/18 03:52 GNT4712 ICU-C15) Document 10/15/18 05:00 VEL8415 (Rec: 10/15/18 05:13 NBX4620 ISDEMO-M03 ) Document 10/15/18 06:00 QLL3315 (Rec: 10/15/18 06:05 SME5681 ICU-C15) Document 10/15/18 06:56 RJY2735 (Rec: 10/15/18 06:56 DPC5556 ICU-C15) Document 10/15/18 08:00 SGG0939 (Rec: 10/15/18 09:28 ACU6997 ICU-C16) Document 10/15/18 09:00 LFE1469 (Rec: 10/15/18 09:28 KWX1612 ICU-C16) Document 10/15/18 10:00 MKJ2793 (Rec: 10/15/18 11:21 ZQZ1531 ICU-C16) Document 10/15/18 11:00 JGI6595 (Rec: 10/15/18 11:21 XQV8805 ICU-C16) Document 10/15/18 12:00 ZOV5326 (Rec: 10/15/18 13:44 MJD7564 ISDEMO-M03 ) Document 10/15/18 13:00 ABS4915 (Rec: 10/15/18 13:44 TDZ5204 ISDEMO-M03 ) Document 10/15/18 13:44 GHL1888 (Rec: 10/15/18 13:44 STH6967 ISDEMO-M03 ) Document 10/15/18 14:58 VGD1081 (Rec: 10/15/18 14:58 OIT4965 ISDEMO-M03 ) Document 10/15/18 16:00 SIX7658 (Rec: 10/15/18 16:54 SXN4801 ICU-C16) Document 10/15/18 17:00 ATJ8630 (Rec: 10/15/18 18:18 DIR9692 ISDEMO-M03 ) Document 10/15/18 18:00 EEP3525 (Rec: 10/15/18 18:18 NZV1558 ISDEMO-M03 ) Document 10/15/18 19:00 WPC8514 (Rec: 10/15/18 20:00 RKZ5574 ISDEMO-M03 ) Document 10/15/18 20:00 VNB6216 (Rec: 10/15/18 20:00 CPL9570 ISDEMO-M03 ) Document 10/15/18 21:00 PZV8293 (Rec: 10/15/18 21:06 TES7290 ISDEMO-M03 ) Document 10/15/18 22:00 XHO0120 (Rec: 10/15/18 22:02 KBC1203 ISDEMO-M03 ) Document 10/15/18 22:57 QPF7112 (Rec: 10/15/18 22:57 ESS3675 ISDEMO-M03 ) Document 10/16/18 00:00 RYT0745 (Rec: 10/16/18 00:08 NLQ4042 ICU-C16) Document 10/16/18 01:00 ZCN8995 (Rec: 10/16/18 01:09 CLF9436 ICU-C16) Document 10/16/18 02:00 JYT6046 (Rec: 10/16/18 03:07 LSJ7087 ICU-C16) Document 10/16/18 03:00 TBE5529 (Rec: 10/16/18 03:07 JEW5308 ICU-C16) Document 10/16/18 04:00 IHB2837 (Rec: 10/16/18 04:03 RUX3046 ISDEMO-M03 ) Document 10/16/18 05:00 JQI0535 (Rec: 10/16/18 05:10 ONI1678 ISDEMO-M03 ) Document 10/16/18 06:00 BHY8352 (Rec: 10/16/18 06:03 TII4593 ISDEMO-M03 ) Document 10/16/18 08:23 LBI9146 (Rec: 10/16/18 08:24 YHP3015 ISDEMO-M03 ) Document 10/16/18 09:04 BCE4091 (Rec: 10/16/18 09:05 UZU4957 ICU-C10) Document 10/16/18 09:58 WNY7476 (Rec: 10/16/18 09:58 IAB5864 ICU-C10) Document 10/16/18 12:04 JME8063 (Rec: 10/16/18 12:04 LIH4441 ICU-C10) Document 10/16/18 13:54 UAE1829 (Rec: 10/16/18 13:54 [id number] ISDEMO-M03 ) Document 10/16/18 14:54 [id number] (Rec: 10/16/18 14:55 [id number] ISDEMO-M03 ) Document 10/16/18 15:26 [id number] (Rec: 10/16/18 15:26 [id number] ISDEMO-M03 ) Document 10/16/18 16:07 [id number] (Rec: 10/16/18 16:08 [id number] ISDEMO-M03 ) Document 10/16/18 17:17 [id number] (Rec: 10/16/18 17:17 [id number] ICU-C10) Document 10/16/18 17:48 [id number] (Rec: 10/16/18 17:48 [id number] ISDEMO-M03 ) Document 10/16/18 19:00 [id number] (Rec: 10/16/18 19:54 [id number] ICU-C16) Document 10/16/18 20:00 [id number] (Rec: 10/16/18 20:31 [id number] ICU-C16) Document 10/16/18 20:52 [id number] (Rec: 10/16/18 20:53 [id number] ISDEMO-M03 ) Document 10/16/18 21:00 [id number] (Rec: 10/16/18 21:50 [id number] ISDEMO-M03 ) Document 10/16/18 21:55 [id number] (Rec: 10/16/18 21:55 [id number] ISDEMO-M03 ) Document 10/16/18 23:00 [id number] (Rec: 10/16/18 23:35 [id number] ICU-C16) Document 10/17/18 00:00 [id number] (Rec: 10/17/18 00:04 [id number] ISDEMO-M03 ) Document 10/17/18 01:00 [id number] (Rec: 10/17/18 01:22 [id number] ICU-C16) Document 10/17/18 02:00 [id number] (Rec: 10/17/18 02:12 [id number] ICU-C16) Document 10/17/18 03:00 [id number] (Rec: 10/17/18 03:23 [id number] ISDEMO-M03 ) Document 10/17/18 03:53 [id number] (Rec: 10/17/18 03:54 [id number] ISDEMO-M03 ) Document 10/17/18 05:00 [id number] (Rec: 10/17/18 05:19 [id number] ICU-C16) Document 10/17/18 06:00 [id number] (Rec: 10/17/18 06:36 [id number] ICU-C16) Document 10/17/18 07:00 [id number] (Rec: 10/17/18 08:44 [id number] ISDEMO-M03 ) Document 10/17/18 08:00 [id number] (Rec: 10/17/18 08:44 [id number] ISDEMO-M03 ) Labs: Laboratory Results - last 24 hr 10/17/18 10/17/18 10/17/18 10:30 10:30 12:04 WBC 9.0 RBC 3.22 L Hgb 10.3 L Hct 31 L MCV 95 H MCH 32 H MCHC 34 RDW 15 Plt Count 292 MPV 6.5 L Patient Temperature Not Reportable ABG pH 7.45 ABG pH (Temp Correct) Not Reportable ABG pCO2 39 ABG pCO2 (Temp Corrct Not Reportable ABG pO2 71 L ABG pO2 (Temp Correct Not Reportable ABG HCO3 27.2 ABG O2 Saturation 96.8 ABG Base Excess 3.0 H Respiration Rate Not Reportable O2 Delivery Device tpiece Ventilator Type Not Reportable Vent Mode Not Reportable FiO2 40 Inspiratory Time Not Reportable PEEP Not Reportable Pressure Support Not Reportable Pressure Control Not Reportable EPAP Not Reportable IPAP Not Reportable BiPAP Not Reportable Sodium 145 Potassium 2.8 L Chloride 112 H Carbon Dioxide 28 Anion Gap 5 BUN 7 Creatinine 0.42 L Est GFR ( Amer) 246.9 Est GFR (Non-Af Amer) 204.1 BUN/Creatinine Ratio 16.7 Glucose 150 H Calcium 8.3 L Studies: CXR 10/17: Stable compared to 10/16 with persistent LLL opacity and bilateral interstitial opacities. CXR 10/16: Possible LLL opacity CXR 10/12: Suboptimal CXR as view of LLL is not included. Grossly mild interstitial opacities Nutrition: TF: Jevity with goal of 40cc/h -->NPO in preparation for extubation Impression: # Acute encephalopathy # Hx/o vascular dementia # Acute alcohol withdrawal # Acute respiratory failure requiring prolong mechanical ventilation # Hypokalemia # Hypotension Plan: # Acute encephalopathy # Hx/o vascular dementia # Acute alcohol withdrawal mental status is improving. However, patient continues to be drowsy DDx: suspect ICU delirium +/- medication induced vs acute hepatic encephalopathy Low suspicion for ETOH w/d given ETOH was undetectable during admission and he is >72 hours from day of admission Low suspicion for hepatic encephalopathy. He is having daily BM -Improving off propofol. Keep propofol off -if patient is not extubated, prefer starting precedex for agitation -Continue with seroquel but reduce am dose to 12.5mg and keep pm dose 25 mg -reduce Gabapentin to 100mg BID - agree with donepezil, Cilatozal, and plavix - on thiamine and folic acid - if mental status does not improve by tomorrow AM will consider starting treatment for HE # Acute respiratory failure requiring prolonged mechanical ventilation due to mental status Tolerated SBT today. - Plan to extubate today - attempted to call sister (Abena) and ended up leaving her a voicemail # Hypokalemia (2.8) likely due to compromised enteral intake and electrolyte abn in the setting of malnutrition - check Mg - replace with KCL IV 80 mEq. Recheck K+ after replacement # Hypotension suspect due to propofol infusion DVT PPx: Hep sq GI: H2B Prognosis: guarded Dispo: Monitor in ICU Critical care issues: acute encephalopathy, mechanical vent Critical Care Time: 45 minutes
[2018-10-17 10:50] LABS: Hematocrit 31 % (42-52); Hemoglobin 10.3 g/dl (14.0-18.0); Mean Corpuscular HGB Conc 34 g/dl (31-36); Mean Corpuscular Hemoglobin 32 pg (27-31); Mean Corpuscular Volume 95 fL (80-94); Mean Platelet Volume 6.5 fL (7.4-10.4); Platelet Count 292 10^3/ul (150-450); Red Blood Count 3.22 10^6/ul (4.00-5.40); Red Cell Distribution Width 15 % (10.5-15)
[2018-10-17 11:18] LABS: BUN/Creatinine Ratio 16.7 (8-20); Calcium 8.3 mg/dL (8.6-10.3); EGFR African American 246.9 (>60); EGFR Non-African American 204.1 (>60); Potassium 2.8 mmol/L (3.5-5.0)
[2018-10-17] MEDS ORDERED: Potassium Chloride LIQUID* 20 MEQ PACKET PO ONE (12:47)
[2018-10-17] MEDS: KCL 20 MEQ/100 ML IVPREMIX* 20 MEQ/100 ML BAG IV SCH ×4 (13:56→21:33)
[2018-10-17 14:59] LABS: Immature Granulocytes 3 % (0-9); Lymphocytes % 13 %; Monocytes % 12 %; Myelocytes % 3 % (0-1); Neutrophil % 72 %
[2018-10-17 15:00] LABS: ABS Neutrophils 6.75 10^3/ul (1.5-7.7)
[2018-10-17] MEDS: Atorvastatin* 10 MG TAB PO SCH (22:21)
[2018-10-17] MEDS: Gabapentin CAP(*) 100 MG PO SCH (22:22)
[2018-10-18 00:55] LABS: BUN/Creatinine Ratio 15.6 (8-20); Calcium 8.3 mg/dL (8.6-10.3); EGFR Non-African American 188.5 (>60); Potassium 3.6 mmol/L (3.5-5.0)
[2018-10-18] MEDS: Heparin VIAL(*) 5000 UNITS/ML VIAL (FIVE THOUSAND) SUBCUT SCH ×3 (05:32→20:07)
[2018-10-18] MEDS ORDERED: QUEtiapine TAB* 25 MG PO SCH (09:00)
--- NOTE | 2018-10-18 10:01 | PN ---
Date of Service: 10/18/18 - TRANSFER NOTE Critical Care Services: 63 M with hx/o CVA with resultant vascular dementia, chronic alcohol abuse being managed in the ICU for acute encephalopathy and acute respiratory failure requiring intubation and mechanical ventilation 10/12/18: DOA, Intubated 10/17/18: Extubated No significant overnight events. Slept well overnight 24 hour events: Extubated, decreasing needs for supplemental O2, passed swallow evaluation. Improving mentation Vital Signs: Temp Pulse Resp BP SpO2 FiO2 99.1 F 57 16 123/63 98 35 10/18/18 07:15 10/18/18 07:15 10/18/18 07:27 10/18/18 07:15 10/18/18 08:34 10/18 01:54 Physical Exam: Gen:NAD. Follows commands intermittently. HEENT:NCAT, STEF, neck midline. Lungs:Clear to auscultation bilaterally Cardiac: +S1S2, RRR Abdomen:SNTND, +BS Extremities:No cyanosis or edema Neuro:Awake and alert. O x 0. No focal neuro deficits Fluid Balance (Past 24 Hours): I= O= Net Intake & Output 10/16/18 10/17/18 10/18/18 10/19/18 06:59 06:59 06:59 06:59 Intake Total 2769 899.7 960.5 Output Total 1300 2405 2045 335 Balance 1469 -1505.3 -1084.5 -335 Weight 148 lb 147 lb 1.6 oz 137 lb 7 oz Intake: IV Fluids 2049 439.8 71 NS (0.9%) 2004 320 NS to Maintain IV Patency 45 51 71 Potassium Chloride 68.8 IVPB 426 Potassium Chloride 426 Medicated IV 420 159.9 15.5 CC - Propofol/Diprivan 420 159.9 15.5 Oral 0 Tube Feeding 300 300 448 Output: Rodriguez 1300 2405 2045 335 Other: Date of Last Bowel 10/16/18 10/18/18 Movement # Bowel Movements 1 Estimated Stool Amount Small Small ADLs: Meal Record Start: 10/12/18 19: 45 Freq: DAILY@0900,1400,1800 Status: Complete Protocol: Created 10/12/18 19:45 System (Rec: 10/12/18 19:45 System MED-M04) ADLs: Meal Record Start: 10/12/18 22: 16 Freq: 09,13,18 Status: Active Protocol: Created 10/12/18 22:16 CTM5014 (Rec: 10/12/18 22:16 OEL6550 ICU-C12) Document 10/13/18 09:00 DLU2786 (Rec: 10/13/18 12:28 GDC9622 ICU-C16) Document 10/13/18 13:00 HDF3161 (Rec: 10/13/18 16:36 NKD1453 ICU-C16) Document 10/13/18 18:00 TIA5537 (Rec: 10/13/18 19:17 ABQ5154 ICU-C16) Document 10/14/18 09:00 CAR9521 (Rec: 10/14/18 09:23 WHN9715 ICU-C15) Document 10/14/18 13:00 TCP7867 (Rec: 10/14/18 13:18 HRZ8581 ICU-C15) Document 10/14/18 18:00 QCP7414 (Rec: 10/14/18 18:42 SYU9349 ICU-C15) Document 10/15/18 09:00 QAZ6148 (Rec: 10/15/18 09:29 WEN4745 ICU-C16) Document 10/15/18 13:00 PJZ9145 (Rec: 10/15/18 13:44 HVY1220 ISDEMO-M03 ) Document 10/15/18 18:00 CFU4022 (Rec: 10/15/18 18:18 HDA8018 ISDEMO-M03 ) Document 10/16/18 17:47 MEJ0195 (Rec: 10/16/18 17:47 PVM9917 ISDEMO-M03 ) Document 10/17/18 09:00 VXY2203 (Rec: 10/17/18 11:06 KUW5983 ISDEMO-M03 ) Document 10/17/18 12:52 SMW5100 (Rec: 10/17/18 12:52 BSS1655 ICU-C15) Document 10/17/18 18:00 XZP7136 (Rec: 10/17/18 18:17 ZSR7759 ICU-C15) Intake and Output Start: 10/12/18 12: 56 Freq: Status: Active Protocol: Created 10/12/18 12:56 System (Rec: 10/12/18 12:56 System EDRM-C16) Intake and Output Start: 10/12/18 19: 45 Freq: DAILY@0600,1400,2200 Status: Complete Protocol: Created 10/12/18 19:45 System (Rec: 10/12/18 19:45 System MED-M04) Intake and Output Start: 10/12/18 22: 16 Freq: Q1HR Status: Active Protocol: Created 10/12/18 22:16 PTA4530 (Rec: 10/12/18 22:16 PXK9041 ICU-C12) Document 10/12/18 23:00 WFV5817 (Rec: 10/13/18 00:46 IVO2109 ISDEMO-M03 ) Document 10/13/18 00:15 OMP1334 (Rec: 10/13/18 00:46 ETG6412 ISDEMO-M03 ) Document 10/13/18 01:06 NDO9299 (Rec: 10/13/18 01:06 OGL7171 ICU-C12) Document 10/13/18 02:00 BLB7648 (Rec: 10/13/18 02:31 ATH7067 ICU-C12) Document 10/13/18 03:03 TMT5699 (Rec: 10/13/18 03:04 RFL5003 ICU-C12) Document 10/13/18 03:54 UBS8601 (Rec: 10/13/18 03:54 TQS3996 ICU-C12) Document 10/13/18 05:00 KLT6125 (Rec: 10/13/18 05:08 GVQ1571 ICU-C12) Document 10/13/18 06:07 EPO1472 (Rec: 10/13/18 06:11 USN1209 ICU-C12) Document 10/13/18 07:00 YMC0541 (Rec: 10/13/18 07:21 MPI7149 ICU-C16) Document 10/13/18 08:00 UWT8197 (Rec: 10/13/18 10:29 CRV9181 ICU-C16) Document 10/13/18 09:00 FCP6053 (Rec: 10/13/18 10:29 JNE4281 ICU-C16) Document 10/13/18 10:00 UAF3435 (Rec: 10/13/18 10:30 COG7896 ICU-C16) Document 10/13/18 11:00 TUU7835 (Rec: 10/13/18 12:29 ZJN3247 ICU-C16) Document 10/13/18 12:00 KNG1755 (Rec: 10/13/18 12:51 KJJ6725 ICU-C16) Document 10/13/18 13:00 TTJ0386 (Rec: 10/13/18 13:28 OIV1597 ICU-C16) Document 10/13/18 13:28 NHT9085 (Rec: 10/13/18 13:28 WXI4547 ICU-C16) Document 10/13/18 15:00 NHD4034 (Rec: 10/13/18 15:13 DTH0973 ISDEMO-M03 ) Document 10/13/18 16:00 LMX8371 (Rec: 10/13/18 16:03 TCC1160 ICU-C16) Document 10/13/18 17:00 SQQ0531 (Rec: 10/13/18 17:00 QKX2472 ICU-C16) Document 10/13/18 18:00 ZIT3939 (Rec: 10/13/18 19:17 GQS2531 ICU-C16) Document 10/13/18 19:00 EAW4053 (Rec: 10/13/18 19:17 MGQ0507 ICU-C16) Document 10/13/18 20:00 HBT9963 (Rec: 10/13/18 21:09 XFO5058 ICU-C16) Document 10/13/18 21:00 DOQ5920 (Rec: 10/13/18 21:09 OCZ7525 ICU-C16) Document 10/13/18 22:00 HPJ5995 (Rec: 10/13/18 22:08 WQA5772 ICU-C16) Document 10/13/18 23:00 ZVA6810 (Rec: 10/13/18 23:02 CSY4381 ICU-C16) Document 10/13/18 23:53 SQU6923 (Rec: 10/13/18 23:53 USE0791 ICU-C16) Document 10/14/18 01:00 YGH2110 (Rec: 10/14/18 02:02 TII0041 ICU-C16) Document 10/14/18 02:00 TCW3463 (Rec: 10/14/18 02:02 QMJ0288 ICU-C16) Document 10/14/18 02:58 GSV3226 (Rec: 10/14/18 02:58 DRC6863 ICU-C16) Document 10/14/18 04:00 MKP2515 (Rec: 10/14/18 04:12 UQL3058 ICU-C16) Document 10/14/18 05:00 TKJ0843 (Rec: 10/14/18 05:17 KQW3358 ISDEMO-M03 ) Document 10/14/18 06:00 ZOS9571 (Rec: 10/14/18 06:36 ONO0826 ICU-C16) Document 10/14/18 07:00 NJN8587 (Rec: 10/14/18 07:59 NTH4635 ICU-C15) Document 10/14/18 08:00 PEP5672 (Rec: 10/14/18 08:12 FRT5930 ICU-C15) Document 10/14/18 09:00 UMU0893 (Rec: 10/14/18 09:23 OLN2444 ICU-C15) Document 10/14/18 10:00 PUS0720 (Rec: 10/14/18 10:24 IZZ5130 ICU-C15) Document 10/14/18 11:00 CVP6034 (Rec: 10/14/18 11:35 SHV8390 ICU-C15) Document 10/14/18 12:00 VHT7560 (Rec: 10/14/18 12:21 PCK4484 ICU-C15) Document 10/14/18 13:00 CGO7288 (Rec: 10/14/18 13:18 RCO8426 ICU-C15) Document 10/14/18 14:00 ZBA0504 (Rec: 10/14/18 15:34 CAP9332 ICU-C15) Document 10/14/18 15:00 UAN6962 (Rec: 10/14/18 15:34 KIR0334 ICU-C15) Document 10/14/18 16:00 BYY5324 (Rec: 10/14/18 16:36 IDA8831 ICU-C15) Document 10/14/18 17:00 ELD9160 (Rec: 10/14/18 18:38 BUW1619 ICU-C15) Document 10/14/18 18:00 GXR6724 (Rec: 10/14/18 18:38 YYT1352 ICU-C15) Document 10/14/18 19:00 DAY2750 (Rec: 10/14/18 20:29 AFP6469 ICU-C15) Document 10/14/18 20:00 HQQ5504 (Rec: 10/14/18 20:29 CEU2396 ICU-C15) Document 10/14/18 21:00 WBP2385 (Rec: 10/14/18 21:17 GAM7371 ICU-C15) Document 10/14/18 21:57 GLP9422 (Rec: 10/14/18 21:57 JEA4606 ICU-C15) Document 10/14/18 23:00 ZRF0080 (Rec: 10/15/18 00:27 NSU0561 ICU-C15) Document 10/15/18 00:00 XHE2934 (Rec: 10/15/18 00:27 CRC0655 ICU-C15) Document 10/15/18 01:00 KFL0740 (Rec: 10/15/18 02:50 EPR3990 ICU-C15) Document 10/15/18 02:00 BOA4287 (Rec: 10/15/18 02:50 EWG1575 ICU-C15) Document 10/15/18 03:00 RQY8779 (Rec: 10/15/18 03:10 YEE9468 ICU-C15) Document 10/15/18 03:48 OFX8607 (Rec: 10/15/18 03:52 VHQ7040 ICU-C15) Document 10/15/18 05:00 KQJ8264 (Rec: 10/15/18 05:13 WTB3033 ISDEMO-M03 ) Document 10/15/18 06:00 PVK5315 (Rec: 10/15/18 06:05 FCN6407 ICU-C15) Document 10/15/18 06:56 GRR1519 (Rec: 10/15/18 06:56 ZTN6441 ICU-C15) Document 10/15/18 08:00 DUC0302 (Rec: 10/15/18 09:28 GBJ0625 ICU-C16) Document 10/15/18 09:00 LYN5393 (Rec: 10/15/18 09:28 AVL8003 ICU-C16) Document 10/15/18 10:00 KRN6579 (Rec: 10/15/18 11:21 WKN7925 ICU-C16) Document 10/15/18 11:00 SIA3836 (Rec: 10/15/18 11:21 GJV6118 ICU-C16) Document 10/15/18 12:00 ZAA6972 (Rec: 10/15/18 13:44 CAS2777 ISDEMO-M03 ) Document 10/15/18 13:00 LRJ4581 (Rec: 10/15/18 13:44 UXP2282 ISDEMO-M03 ) Document 10/15/18 13:44 LSF6430 (Rec: 10/15/18 13:44 ROK8238 ISDEMO-M03 ) Document 10/15/18 14:58 MGJ2283 (Rec: 10/15/18 14:58 YUS9549 ISDEMO-M03 ) Document 10/15/18 16:00 TZW3552 (Rec: 10/15/18 16:54 UWZ5442 ICU-C16) Document 10/15/18 17:00 XTS6528 (Rec: 10/15/18 18:18 FTQ1427 ISDEMO-M03 ) Document 10/15/18 18:00 YJL3117 (Rec: 10/15/18 18:18 NNS4860 ISDEMO-M03 ) Document 10/15/18 19:00 FUX6056 (Rec: 10/15/18 20:00 PCX6952 ISDEMO-M03 ) Document 10/15/18 20:00 RFW8446 (Rec: 10/15/18 20:00 MZB7982 ISDEMO-M03 ) Document 10/15/18 21:00 QHA9834 (Rec: 10/15/18 21:06 ZBG1303 ISDEMO-M03 ) Document 10/15/18 22:00 CTZ2357 (Rec: 10/15/18 22:02 QYY2316 ISDEMO-M03 ) Document 10/15/18 22:57 LSO0285 (Rec: 10/15/18 22:57 ELK2005 ISDEMO-M03 ) Document 10/16/18 00:00 MXI8793 (Rec: 10/16/18 00:08 OSA7953 ICU-C16) Document 10/16/18 01:00 DHO1650 (Rec: 10/16/18 01:09 RHW4452 ICU-C16) Document 10/16/18 02:00 SRG3242 (Rec: 10/16/18 03:07 VPP4712 ICU-C16) Document 10/16/18 03:00 FNC7191 (Rec: 10/16/18 03:07 SIV0723 ICU-C16) Document 10/16/18 04:00 KNZ5440 (Rec: 10/16/18 04:03 PXC1275 ISDEMO-M03 ) Document 10/16/18 05:00 ZWN3578 (Rec: 10/16/18 05:10 JDR4668 ISDEMO-M03 ) Document 10/16/18 06:00 DZQ2102 (Rec: 10/16/18 06:03 NUN7951 ISDEMO-M03 ) Document 10/16/18 08:23 QDU9665 (Rec: 10/16/18 08:24 RBT1299 ISDEMO-M03 ) Document 10/16/18 09:04 YLN4425 (Rec: 10/16/18 09:05 VLN2166 ICU-C10) Document 10/16/18 09:58 QTB6110 (Rec: 10/16/18 09:58 DMZ3604 ICU-C10) Document 10/16/18 12:04 ICE2097 (Rec: 10/16/18 12:04 HNA4666 ICU-C10) Document 10/16/18 13:54 ICJ3797 (Rec: 10/16/18 13:54 MCZ7012 ISDEMO-M03 ) Document 10/16/18 14:54 FSV9794 (Rec: 10/16/18 14:55 MDV7498 ISDEMO-M03 ) Document 10/16/18 15:26 ELD4663 (Rec: 10/16/18 15:26 ZDG1792 ISDEMO-M03 ) Document 10/16/18 16:07 KAB1131 (Rec: 10/16/18 16:08 IQO2372 ISDEMO-M03 ) Document 10/16/18 17:17 PGM4795 (Rec: 10/16/18 17:17 UMQ8793 ICU-C10) Document 10/16/18 17:48 ZSB2899 (Rec: 10/16/18 17:48 GPI6793 ISDEMO-M03 ) Document 10/16/18 19:00 IFI7113 (Rec: 10/16/18 19:54 BIN1043 ICU-C16) Document 10/16/18 20:00 FZN7433 (Rec: 10/16/18 20:31 GFX8762 ICU-C16) Document 10/16/18 20:52 DPW4070 (Rec: 10/16/18 20:53 ELN5805 ISDEMO-M03 ) Document 10/16/18 21:00 NYL4398 (Rec: 10/16/18 21:50 QKX9976 ISDEMO-M03 ) Document 10/16/18 21:55 WXT0530 (Rec: 10/16/18 21:55 YDT7390 ISDEMO-M03 ) Document 10/16/18 23:00 CYH3672 (Rec: 10/16/18 23:35 MIM0594 ICU-C16) Document 10/17/18 00:00 WSS1335 (Rec: 10/17/18 00:04 ASW1584 ISDEMO-M03 ) Document 10/17/18 01:00 CEM3860 (Rec: 10/17/18 01:22 HGY3626 ICU-C16) Document 10/17/18 02:00 EJM7459 (Rec: 10/17/18 02:12 OHX6540 ICU-C16) Document 10/17/18 03:00 RLY0388 (Rec: 10/17/18 03:23 ABJ1012 ISDEMO-M03 ) Document 10/17/18 03:53 PXS1157 (Rec: 10/17/18 03:54 WZQ0713 ISDEMO-M03 ) Document 10/17/18 05:00 GAV6231 (Rec: 10/17/18 05:19 GPP7755 ICU-C16) Document 10/17/18 06:00 HJM3410 (Rec: 10/17/18 06:36 FOV5910 ICU-C16) Document 10/17/18 07:00 RCB2418 (Rec: 10/17/18 08:44 TDC6449 ISDEMO-M03 ) Document 10/17/18 08:00 RCV0080 (Rec: 10/17/18 08:44 KTM7477 ISDEMO-M03 ) Document 10/17/18 09:00 TXZ9435 (Rec: 10/17/18 11:08 OVH5672 ISDEMO-M03 ) Document 10/17/18 10:00 ULK5217 (Rec: 10/17/18 11:08 VSD6262 ISDEMO-M03 ) Document 10/17/18 11:00 JJY8275 (Rec: 10/17/18 11:08 EAI2700 ISDEMO-M03 ) Document 10/17/18 12:00 TCK7363 (Rec: 10/17/18 12:43 EOV0079 ICU-C15) Document 10/17/18 13:00 ZGU9950 (Rec: 10/17/18 14:49 ISDEMO-M03 ) Document 10/17/18 14:00 AVO6635 (Rec: 10/17/18 14:49 USJ5802 ISDEMO-M03 ) Document 10/17/18 14:57 IKN6042 (Rec: 10/17/18 14:58 PEW4389 ISDEMO-M03 ) Document 10/17/18 16:00 XPT3160 (Rec: 10/17/18 16:32 PRB3657 ICU-C15) Document 10/17/18 17:00 GER6216 (Rec: 10/17/18 18:17 WHK5871 ICU-C15) Document 10/17/18 18:00 VWU4597 (Rec: 10/17/18 18:17 GAK9983 ICU-C15) Document 10/17/18 19:00 HKK9785 (Rec: 10/17/18 19:16 PKR8161 ICU-C10) Document 10/17/18 20:00 QAV2541 (Rec: 10/17/18 20:13 NWJ7270 ICU-C10) Document 10/17/18 21:00 ZPO7106 (Rec: 10/17/18 21:10 OHM8611 ICU-C10) Document 10/17/18 22:00 ADC9822 (Rec: 10/17/18 22:17 YJW0303 ICU-C10) Document 10/17/18 23:00 STS2816 (Rec: 10/17/18 23:07 QXK1360 ICU-C10) Document 10/18/18 00:00 KOY8943 (Rec: 10/18/18 00:04 URU9499 ICU-C10) Document 10/18/18 01:00 UCI6926 (Rec: 10/18/18 01:13 ZDE3813 ICU-C10) Document 10/18/18 02:00 GUJ0845 (Rec: 10/18/18 02:01 DGH1214 ICU-C10) Document 10/18/18 03:00 MAC5140 (Rec: 10/18/18 03:07 DFN3800 ICU-C10) Document 10/18/18 04:00 FAB7828 (Rec: 10/18/18 04:19 DWD6783 ICU-C10) Document 10/18/18 05:00 HHD7853 (Rec: 10/18/18 05:05 XRM8098 [facility]-M03 ) Document 10/18/18 06:00 PHG6660 (Rec: 10/18/18 06:04 PEF5536 ICU-C10) Document 10/18/18 07:00 YVJ0948 (Rec: 10/18/18 07:15 FQS1980 [facility]-M03 ) Labs: Laboratory Results - last 24 hr 10/17/18 10/17/18 10/17/18 10:30 10:30 12:04 WBC 9.0 RBC 3.22 L Hgb 10.3 L Hct 31 L MCV 95 H MCH 32 H MCHC 34 RDW 15 Plt Count 292 MPV 6.5 L Neut % (Auto) Not Reportable Lymph % (Auto) Not Reportable [place] % (Auto) Not Reportable Eos % (Auto) Not Reportable Baso % (Auto) Not Reportable Absolute Neuts (auto) Not Reportable Absolute Lymphs (auto) Not Reportable Absolute Monos (auto) Not Reportable Absolute Eos (auto) Not Reportable Absolute Basos (auto) Not Reportable Absolute Nucleated RBC Not Reportable Immature Gran % 3 Neutrophils % 72 Lymphocytes % 13 Monocytes % 12 Myelocytes % 3 H Nucleated RBC % Not Reportable Abs Neuts (Manual) 6.75 Abs Lymphs (Manual) 1.17 Abs Monocytes (Manual) 1.08 H Normal RBC Morphology Normal Patient Temperature Not Reportable ABG pH 7.45 ABG pH (Temp Correct) Not Reportable ABG pCO2 39 ABG pCO2 (Temp Corrct Not Reportable ABG pO2 71 L ABG pO2 (Temp Correct Not Reportable ABG HCO3 27.2 ABG O2 Saturation 96.8 ABG Base Excess 3.0 H Respiration Rate Not Reportable O2 Delivery Device tpiece Ventilator Type Not Reportable Vent Mode Not Reportable FiO2 40 Inspiratory Time Not Reportable PEEP Not Reportable Pressure Support Not Reportable Pressure Control Not Reportable EPAP Not Reportable IPAP Not Reportable BiPAP Not Reportable Sodium 145 Potassium 2.8 L Chloride 112 H Carbon Dioxide 28 Anion Gap 5 BUN 7 Creatinine 0.42 L Est GFR ( Amer) 246.9 Est GFR (Non-Af Amer) 204.1 BUN/Creatinine Ratio 16.7 Glucose 150 H Calcium 8.3 L Magnesium 2.0 Ammonia 10/18/18 10/18/18 10/18/18 00:30 05:30 05:30 WBC RBC Hgb Hct MCV MCH MCHC RDW Plt Count MPV Neut % (Auto) Lymph % (Auto) [place] % (Auto) Eos % (Auto) Baso % (Auto) Absolute Neuts (auto) Absolute Lymphs (auto) Absolute Monos (auto) Absolute Eos (auto) Absolute Basos (auto) Absolute Nucleated RBC Immature Gran % Neutrophils % Lymphocytes % Monocytes % Myelocytes % Nucleated RBC % Abs Neuts (Manual) Abs Lymphs (Manual) Abs Monocytes (Manual) Normal RBC Morphology Patient Temperature ABG pH ABG pH (Temp Correct) ABG pCO2 ABG pCO2 (Temp Corrct ABG pO2 ABG pO2 (Temp Correct ABG HCO3 ABG O2 Saturation ABG Base Excess Respiration Rate O2 Delivery Device Ventilator Type Vent Mode FiO2 Inspiratory Time PEEP Pressure Support Pressure Control EPAP IPAP BiPAP Sodium 145 Potassium 3.6 Chloride 112 H Carbon Dioxide 27 Anion Gap 6 BUN 7 Creatinine 0.45 L Est GFR ( Amer) 228.0 Est GFR (Non-Af Amer) 188.5 BUN/Creatinine Ratio 15.6 Glucose 96 Calcium 8.3 L Magnesium 2.1 Ammonia 66 H Studies: CXR 10/17: Stable compared to 10/16 with persistent LLL opacity and bilateral interstitial opacities. CXR 10/16: Possible LLL opacity CXR 10/12: Suboptimal CXR as view of LLL is not included. Grossly mild interstitial opacities Nutrition: Regular Diet Impression: # Acute encephalopathy improving # Hx/o vascular dementia # Acute alcohol withdrawal # Acute respiratory failure requiring prolong mechanical ventilation # Hypokalemia # Hypotension resolved Plan: # Acute encephalopathy mental status is improving. However, patient continues to exhibit signs of encephalopathy which could be chronic in nature DDx: suspect ICU delirium +/- medication induced vs chronic encephalopathy ( ie Wernicke's) Low suspicion for ETOH w/d given ETOH was undetectable during admission and he is >72 hours from day of admission Low suspicion for hepatic encephalopathy. He is having daily BM and improving without other intervention # Hx/o vascular dementia - Decrease seroquel to 25 mg at bedtime - consider neuro re-evaluation if patient does not show further improvement - check B1, B12, folate levels - Gabapentin to 100mg BID - agree with donepezil, Cilatozal, and plavix - on thiamine and folic acid # Acute respiratory failure requiring prolong mechanical ventilation -extubated 10/17/18 - on 3LPM NC with optimal respiratory status - passed swallow eval and cleared for regular diet # Hypokalemia suspect due to poor enteral intake -monitor electrolytes daily and replace per protocol # Prolong rodriguez catheter -discontinue rodriguez today. Monitor UOP/retention post removal # Frailty -PT/OT eval pending DVT PPx: Hep sq GI: H2B Prognosis: guarded FM: attempted to call sister (Abena) and ended up leaving her a voicemail 10/17 Dispo: Ok to transfer to medicine Critical Care Time: 40 minutes
[2018-10-18] MEDS: Cilostazol TAB* 100 MG PO SCH ×2 (11:07→20:11)
[2018-10-18] MEDS: Clopidogrel TAB* 75 MG PO SCH (11:08)
[2018-10-18] MEDS: Gabapentin CAP(*) 100 MG PO SCH ×2 (11:08→20:12)
[2018-10-18] MEDS: Famotidine TAB* 20 MG PO SCH ×2 (11:08→20:11)
[2018-10-18] MEDS: Donepezil TAB* 5 MG PO SCH (11:08)
[2018-10-18] MEDS: Folic Acid TAB* 1 MG PO SCH (11:08)
[2018-10-18] MEDS: Thiamine TAB* 100 MG TAB PO SCH (11:08)
[2018-10-18] MEDS: KCL 20 MEQ/100 ML IVPREMIX* 20 MEQ/100 ML BAG IV SCH ×2 (11:09→16:18)
[2018-10-18] MEDS: QUEtiapine TAB* 25 MG PO SCH (20:08)
[2018-10-18] MEDS: Atorvastatin* 10 MG TAB PO SCH (20:10)
[2018-10-19] MEDS: Heparin VIAL(*) 5000 UNITS/ML VIAL (FIVE THOUSAND) SUBCUT SCH ×3 (05:06→20:06)
[2018-10-19 07:34] LABS: BUN/Creatinine Ratio 13.7 (8-20); Calcium 8.6 mg/dL (8.6-10.3); EGFR African American 197.4 (>60); EGFR Non-African American 163.1 (>60); Phosphorus 3.1 mg/dL (2.5-5.0); Potassium 3.1 mmol/L (3.5-5.0)
[2018-10-19 08:14] LABS: Folate 17.69 ng/mL (>3.99)
[2018-10-19] MEDS ORDERED: Potassium Chlor TAB* 20 MEQ TAB.ER PO ONE ×2 (08:36→13:00)
[2018-10-19] MEDS ORDERED: KCL 20 MEQ/100 ML IVPREMIX* 20 MEQ/100 ML BAG IV ONE (08:37)
[2018-10-19] MEDS: Cilostazol TAB* 100 MG PO SCH ×2 (09:04→19:34)
[2018-10-19] MEDS: Clopidogrel TAB* 75 MG PO SCH (09:04)
[2018-10-19] MEDS: Famotidine TAB* 20 MG PO SCH ×2 (09:04→19:33)
[2018-10-19] MEDS: Donepezil TAB* 5 MG PO SCH (09:04)
[2018-10-19] MEDS: Folic Acid TAB* 1 MG PO SCH (09:04)
[2018-10-19] MEDS: Gabapentin CAP(*) 100 MG PO SCH ×2 (09:04→19:31)
[2018-10-19] MEDS: Thiamine TAB* 100 MG TAB PO SCH (09:04)
--- NOTE | 2018-10-19 12:23 | PN ---
Subjective Date of Service: 10/19/18 Interval History: Patient alert awake sitting up in bed, confused. appears comfortable. per nurse he is refusing to eat today turning hi face away when being offered food. When ask if in pain he points to epigastric area. Objective Active Medications: Atorvastatin Calcium (Lipitor*) 5 mg PO BEDTIME [facility] Last Admin: 10/18/18 20:10 Dose: 5 mg Cilostazol (Pletal Tab*) 50 mg PO BID [facility] Last Admin: 10/19/18 09:04 Dose: 50 mg Clopidogrel Bisulfate (Plavix Tab*) 75 mg PO DAILY [facility] Last Admin: 10/19/18 09:04 Dose: 75 mg Donepezil HCl (Aricept Tab*) 5 mg PO DAILY [facility] Last Admin: 10/19/18 09:04 Dose: 5 mg Famotidine (Pepcid Tab*) 20 mg PO BID [facility]; Protocol Last Admin: 10/19/18 09:04 Dose: 20 mg Folic Acid (Folvite Tab*) 1 mg PO DAILY [facility] Last Admin: 10/19/18 09:04 Dose: 1 mg Gabapentin (Neurontin Cap(*)) 100 mg PO BID [facility] Last Admin: 10/19/18 09:04 Dose: 100 mg Heparin Sodium (Porcine) (Heparin Vial(*)) 5,000 units SUBCUT Q8HR [facility] Last Admin: 10/19/18 05:06 Dose: 5,000 units Heparin Sodium (Porcine) (Heparin Flush Picc/Ml/Cvc(*)) 1 - 3 ml FLUSH 0600, 1800 [facility]; Protocol Last Admin: 10/19/18 05:06 Dose: Not Given Potassium Chloride (Klor Con Er Tab*) 20 meq PO ONCE ONE Stop: 10/19/18 13:01 Quetiapine Fumarate (Seroquel Tab*) 25 mg PO BEDTIME [facility] Last Admin: 10/18/18 20:08 Dose: 25 mg Thiamine HCl (Vitamin B-1 Tab*) 100 mg PO DAILY [facility] Last Admin: 10/19/18 09:04 Dose: 100 mg Vital Signs - 8 hr 10/19/18 10/19/18 10/19/18 07:30 09:04 11:24 Temperature 98.2 F 98.2 F Pulse Rate 61 65 Respiratory 18 18 18 Rate Blood Pressure 103/57 111/62 (mmHg) O2 Sat by Pulse 94 94 Oximetry Oxygen Devices in Use Now: Nasal Cannula Appearance: chronically ill male alert, confused in NAD Eyes: No Scleral Icterus, PERRLA Neck: NL Appearance and Movements; NL JVP Respiratory: Symmetrical Chest Expansion and Respiratory Effort, Clear to Auscultation Cardiovascular: NL Sounds; No Murmurs; No JVD, RRR, No Edema Abdominal: - - mild tenderness to palpation, non distended, Nl BS, no guarding Extremities: No Edema, No Clubbing, Cyanosis Neurological: - - alert awake confused, wiggles toes, generalized weakness; passive ROM, no focal deficits noted Lines/Tubes/Other Access: Clean, Dry and Intact PICC Line Nutrition: Taking PO's Result Diagrams: 10/17/18 10:30 10/19/18 06:29 Microbiology and Other Data: Microbiology 10/12/18 16:23 Aerobic Blood Culture - Final Blood Venous No Growth Day 5 Anaerobic Blood Culture - Final No Growth Day 5 10/12/18 16:23 Aerobic Blood Culture - Final Blood Venous No Growth Day 5 Anaerobic Blood Culture - Final No Growth Day 5 10/12/18 23:06 Urine Culture - Final Urine No Growth (<1,000 CFU/mL) 10/12/18 23:00 Nasal Screen MRSA (PCR) - Final Nasal Mrsa Not Detected Assess/Plan/Problems-Billing Assessment: 63 yo male with PMH of chronic etoh abuse, hx of CVA with resultant vascular dementia who presented to the [facility] [place] [facility] on 10/12/18 from [facility] in which he was transferred for concern of confusion, CP, SOB. He was seen in the [place] ER the night before with a dx of gastritis. On admission he was found to have AMS, possible SIRs of unclear etiology. He then declined the night of admission and was transferred to the ICU for increasing ams, possible sepsis, alcohol withdrawal complicated by acute respiratory failure requiring prolonged intubation, acute encephalopathy, alcohol withdrawal - extubated 10/17 and transferred out of ICU 10/18 to medical floor. - Patient Problems (1) Acute respiratory failure Comment: - Resolved. Intubated for acute respiratory failure for more of a concern for AMS. Was treated with Zosyn, azithro, vanco possible pna - Extubated 10/17. Doing well. Continue on 4L NC. Continue to attampt to wean O2. Lungs CTA. - Blood cx, UTI cx negative (2) Acute encephalopathy Comment: Continues to be confused ICU delirium vs acute toxic encephalopathy in the setting of etoh withdrawal. Did have elevated ammonia but having daily BMs, and trending down, possible hepatic in nature? Hx of vascular dementia. Ammonia levels elevated, repeat this am trending down. Neurology consult. Did not recommend LP. Suspected toxic metabolic encephalopathy. B12 levels slightly elevated, folate wnls, B1 level pending (3) Epigastric abdominal pain Comment: - unclear. pt reported epigastric pain. - send stool for occult blood. - start PPI (4) Hypokalemia Comment: K+ 3.1 - give replacement; repeat in am (5) History of CVA (cerebrovascular accident) Comment: - continue pletal, plavix, lipitor (6) Vascular dementia Comment: - supportive tx. prior to hospitalization per telephonic case manager he was A+O x3 living in assisted living - continue aricept - continue Seroquel at bedtime (7) DVT prophylaxis Comment: HSQ Status and Disposition: inpatient. most likely will require SNF.
[2018-10-19] MEDS ORDERED: NS 0.9% 1000 ML** 1,000 ML IV.FLUID IV ONE (18:26)
[2018-10-19] MEDS: Atorvastatin* 10 MG TAB PO SCH (19:32)
[2018-10-19] MEDS: QUEtiapine TAB* 25 MG PO SCH (19:33)
[2018-10-20 04:04] LABS: Hematocrit 33 % (42-52); Mean Corpuscular HGB Conc 33 g/dl (31-36); Mean Corpuscular Hemoglobin 32 pg (27-31); Mean Corpuscular Volume 96 fL (80-94); Mean Platelet Volume 6.4 fL (7.4-10.4); Platelet Count 298 10^3/ul (150-450); Red Blood Count 3.47 10^6/ul (4.00-5.40); Red Cell Distribution Width 14 % (10.5-15); White Blood Count 6.6 10^3/ul (3.5-10.8)
[2018-10-20 04:43] LABS: Calcium 8.3 mg/dL (8.6-10.3); EGFR African American 201.9 (>60); EGFR Non-African American 166.9 (>60); Magnesium 1.9 mg/dL (1.9-2.7); Phosphorus 3.3 mg/dL (2.5-5.0); Potassium 3.2 mmol/L (3.5-5.0)
[2018-10-20 04:59] LABS: ABS Basophils 0.1 10^3/ul (0-0.2); ABS Eosinophils 0.1 10^3/ul (0-0.6); ABS Lymphocytes 1.1 10^3/ul (1.0-4.8); ABS Neutrophils 4.3 10^3/ul (1.5-7.7); ABS Nucleated RBC 0 10^3/ul; Eosinophil % 1.4 %; Lymphocyte % 16.7 %; Nucleated Red Blood Cells % 0
[2018-10-20] MEDS: Heparin VIAL(*) 5000 UNITS/ML VIAL (FIVE THOUSAND) SUBCUT SCH ×3 (05:01→20:49)
[2018-10-20] MEDS: Gabapentin CAP(*) 100 MG PO SCH ×2 (08:41→20:48)
[2018-10-20] MEDS: Famotidine TAB* 20 MG PO SCH ×2 (08:41→20:49)
[2018-10-20] MEDS: Thiamine TAB* 100 MG TAB PO SCH (08:42)
[2018-10-20] MEDS: Donepezil TAB* 5 MG PO SCH (08:42)
[2018-10-20] MEDS: Pantoprazole TAB * 40 MG TAB PO SCH (08:42)
[2018-10-20] MEDS: Clopidogrel TAB* 75 MG PO SCH (08:42)
[2018-10-20] MEDS: Cilostazol TAB* 100 MG PO SCH ×2 (08:42→20:48)
[2018-10-20] MEDS: Potassium Chlor TAB* 20 MEQ TAB.ER PO SCH ×2 (08:42→20:48)
[2018-10-20] MEDS: Folic Acid TAB* 1 MG PO SCH (08:42)
--- NOTE | 2018-10-20 09:33 | PN ---
Subjective Date of Service: 10/20/18 Interval History: Mr. Hernandez is a 63 yo male, found sitting up in the bed. He appears confused and does not respond appropriately to questions or commands. Family History: Unchanged from Admission Social History: Unchanged from Admission Past Medical History: Unchanged from Admission Objective Active Medications: Atorvastatin Calcium (Lipitor*) 5 mg PO BEDTIME REPLACED BY [facility] Last Admin: 10/19/18 19:32 Dose: 5 mg Cilostazol (Pletal Tab*) 50 mg PO BID REPLACED BY [facility] Last Admin: 10/20/18 08:42 Dose: 50 mg Clopidogrel Bisulfate (Plavix Tab*) 75 mg PO DAILY REPLACED BY [facility] Last Admin: 10/20/18 08:42 Dose: 75 mg Donepezil HCl (Aricept Tab*) 5 mg PO DAILY REPLACED BY [facility] Last Admin: 10/20/18 08:42 Dose: 5 mg Famotidine (Pepcid Tab*) 20 mg PO BID REPLACED BY [facility]; Protocol Last Admin: 10/20/18 08:41 Dose: 20 mg Folic Acid (Folvite Tab*) 1 mg PO DAILY REPLACED BY [facility] Last Admin: 10/20/18 08:42 Dose: 1 mg Gabapentin (Neurontin Cap(*)) 100 mg PO BID REPLACED BY [facility] Last Admin: 10/20/18 08:41 Dose: 100 mg Heparin Sodium (Porcine) (Heparin Vial(*)) 5,000 units SUBCUT Q8HR REPLACED BY [facility] Last Admin: 10/20/18 05:01 Dose: 5,000 units Heparin Sodium (Porcine) (Heparin Flush Picc/Ml/Cvc(*)) 1 - 3 ml FLUSH 0600, 1800 REPLACED BY [facility]; Protocol Last Admin: 10/20/18 05:04 Dose: 3 ml Pantoprazole Sodium (Protonix Tab*) 40 mg PO DAILY REPLACED BY [facility] Last Admin: 10/20/18 08:42 Dose: 40 mg Potassium Chloride (Klor Con Er Tab*) 20 meq PO BID REPLACED BY [facility] Last Admin: 10/20/18 08:42 Dose: 20 meq Quetiapine Fumarate (Seroquel Tab*) 25 mg PO BEDTIME REPLACED BY [facility] Last Admin: 10/19/18 19:33 Dose: 25 mg Thiamine HCl (Vitamin B-1 Tab*) 100 mg PO DAILY REPLACED BY [facility] Last Admin: 10/20/18 08:42 Dose: 100 mg Vital Signs - 8 hr 10/20/18 10/20/18 10/20/18 04:08 07:25 08:41 Temperature 97.2 F 97.1 F Pulse Rate 57 65 Respiratory 16 18 18 Rate Blood Pressure 112/60 126/64 (mmHg) O2 Sat by Pulse 96 95 Oximetry Oxygen Devices in Use Now: Nasal Cannula Appearance: Chronically ill-appearing 63 yo male, sitting up in bed, confused, NAD Eyes: No Scleral Icterus, PERRLA Ears/Nose/Mouth/Throat: Clear Oropharnyx, - - dry oral mucosa and lips Neck: NL Appearance and Movements; NL JVP Respiratory: Symmetrical Chest Expansion and Respiratory Effort, Clear to Auscultation Cardiovascular: NL Sounds; No Murmurs; No JVD, RRR, No Edema Abdominal: NL Sounds; No Tenderness; No Distention Extremities: No Clubbing, Cyanosis Neurological: - - Alert, responds to name, does not follow commands, reflexes intact Lines/Tubes/Other Access: Clean, Dry and Intact PICC Line Nutrition: Taking PO's Result Diagrams: 10/20/18 03:53 10/20/18 03:53 Microbiology and Other Data: Microbiology 10/12/18 16:23 Aerobic Blood Culture - Final Blood Venous No Growth Day 5 Anaerobic Blood Culture - Final No Growth Day 5 10/12/18 16:23 Aerobic Blood Culture - Final Blood Venous No Growth Day 5 Anaerobic Blood Culture - Final No Growth Day 5 10/12/18 23:06 Urine Culture - Final Urine No Growth (<1,000 CFU/mL) 10/12/18 23:00 Nasal Screen MRSA (PCR) - Final Nasal Mrsa Not Detected Assess/Plan/Problems-Billing Assessment: 63 yo male with PMH of chronic etoh abuse, hx of CVA with resultant vascular dementia who presented to the [facility] ER on 10/12/18 from [facility] in which he was transferred for concern of confusion, CP, SOB. He was seen in the [place] ER the night before with a dx of gastritis. On admission he was found to have AMS, possible SIRs of unclear etiology. He then declined the night of admission and was transferred to the ICU for increasing ams, possible sepsis, alcohol withdrawal complicated by acute respiratory failure requiring prolonged intubation, acute encephalopathy, alcohol withdrawal - extubated 10/17 and transferred out of ICU 10/18 to medical floor. - Patient Problems (1) Acute respiratory failure Code(s): J96.00 - ACUTE RESPIRATORY FAILURE, UNSP W HYPOXIA OR HYPERCAPNIA Comment: Resolved Intubated for acute respiratory failure for more of a concern for AMS. Was treated with Zosyn, azithro, vanco for possible pna Extubated 10/17, doing well. Continue on 4L NC. Continue to attempt to wean O2. Lungs CTA. Blood cx, UTI cx negative (2) Acute encephalopathy Code(s): G93.40 - ENCEPHALOPATHY, UNSPECIFIED SNOMED Code(s): 57731526 Comment: Continues to be confused ICU delirium vs acute toxic encephalopathy in the setting of ETOH withdrawal. Did have elevated ammonia but having daily BMs, and trending down, possible hepatic in nature? Hx of vascular dementia. Ammonia levels previous elevated, have trended down. Neurology consult. Did not recommend LP. Suspected toxic metabolic encephalopathy. B12 levels slightly elevated, folate wnls, B1 level pending (3) Epigastric abdominal pain Code(s): R10.13 - EPIGASTRIC PAIN Comment: Appears better today Stool occult negative Continue PPI (4) Hypokalemia Code(s): E87.6 - HYPOKALEMIA Comment: K+ 3.2 Ordered daily repletion Continue to follow (5) History of CVA (cerebrovascular accident) Code(s): Z86.73 - PRSNL HX OF TIA (TIA), AND CEREB INFRC W/O RESID DEFICITS Comment: Continue Pletal, Plavix, Lipitor (6) Vascular dementia Code(s): F01.50 - VASCULAR DEMENTIA WITHOUT BEHAVIORAL DISTURBANCE Comment: Supportive tx prior to hospitalization Per casework manager, he was A+O x3, residing in Assisted Living Continue Aricept Continue Seroquel at bedtime (7) DVT prophylaxis Comment: HSQ Status and Disposition: Inpatient, most likely will require SNF.
[2018-10-20 09:55] LABS: Albumin 3.1 g/dL (3.2-5.2); Albumin/Globulin Ratio 1.4 (1-3); Globulin 2.2 g/dL (2-4); Indirect Bilirubin 0.3 mg/dL (0.3-1.0); Total Bilirubin 0.4 mg/dL (0.2-1.0); Total Protein 5.3 g/dL (6.4-8.9)
[2018-10-20] MEDS: Atorvastatin* 10 MG TAB PO SCH (20:49)
[2018-10-20] MEDS: QUEtiapine TAB* 25 MG PO SCH (20:49)
[2018-10-21] MEDS ORDERED: NS 0.9% 500 ML* 500 ML IV ONE (03:19)
[2018-10-21] MEDS: Heparin VIAL(*) 5000 UNITS/ML VIAL (FIVE THOUSAND) SUBCUT SCH ×3 (05:23→20:50)
[2018-10-21] MEDS: Famotidine TAB* 20 MG PO SCH ×2 (09:05→20:17)
[2018-10-21] MEDS: Thiamine TAB* 100 MG TAB PO SCH (09:07)
[2018-10-21] MEDS: Folic Acid TAB* 1 MG PO SCH (09:07)
[2018-10-21] MEDS: Potassium Chlor TAB* 20 MEQ TAB.ER PO SCH ×2 (09:08→20:17)
[2018-10-21] MEDS: Donepezil TAB* 5 MG PO SCH (09:09)
[2018-10-21] MEDS: Pantoprazole TAB * 40 MG TAB PO SCH (09:09)
[2018-10-21] MEDS: Clopidogrel TAB* 75 MG PO SCH (09:09)
[2018-10-21] MEDS: Gabapentin CAP(*) 100 MG PO SCH ×2 (09:09→20:17)
[2018-10-21] MEDS: Cilostazol TAB* 100 MG PO SCH ×2 (09:10→20:17)
--- NOTE | 2018-10-21 10:11 | PN ---
Subjective Date of Service: 10/21/18 Interval History: Mr. Hernandez is sitting up in bed. He is more alert and responds slightly more appropriately today, although he still does not follow commands. He reports that there is another man in the room laying down (he is in the room alone, looking at the shelves). Denies epigastric pain or any chest pain or difficulty breathing. Family History: Unchanged from Admission Social History: Unchanged from Admission Past Medical History: Unchanged from Admission Objective Active Medications: Atorvastatin Calcium (Lipitor*) 5 mg PO BEDTIME [facility] Last Admin: 10/20/18 20:49 Dose: 5 mg Cilostazol (Pletal Tab*) 50 mg PO BID [facility] Last Admin: 10/21/18 09:10 Dose: 50 mg Clopidogrel Bisulfate (Plavix Tab*) 75 mg PO DAILY [facility] Last Admin: 10/21/18 09:09 Dose: 75 mg Donepezil HCl (Aricept Tab*) 5 mg PO DAILY [facility] Last Admin: 10/21/18 09:09 Dose: 5 mg Famotidine (Pepcid Tab*) 20 mg PO BID [facility]; Protocol Last Admin: 10/21/18 09:05 Dose: 20 mg Folic Acid (Folvite Tab*) 1 mg PO DAILY [facility] Last Admin: 10/21/18 09:07 Dose: 1 mg Gabapentin (Neurontin Cap(*)) 100 mg PO BID [facility] Last Admin: 10/21/18 09:09 Dose: 100 mg Heparin Sodium (Porcine) (Heparin Vial(*)) 5,000 units SUBCUT Q8HR [facility] Last Admin: 10/21/18 05:23 Dose: 5,000 units Heparin Sodium (Porcine) (Heparin Flush Picc/Ml/Cvc(*)) 1 - 3 ml FLUSH 0600, 1800 [facility]; Protocol Last Admin: 10/21/18 05:23 Dose: 3 ml Pantoprazole Sodium (Protonix Tab*) 40 mg PO DAILY [facility] Last Admin: 10/21/18 09:09 Dose: 40 mg Potassium Chloride (Klor Con Er Tab*) 20 meq PO BID [facility] Last Admin: 10/21/18 09:08 Dose: 20 meq Quetiapine Fumarate (Seroquel Tab*) 25 mg PO BEDTIME [facility] Last Admin: 10/20/18 20:49 Dose: 25 mg Thiamine HCl (Vitamin B-1 Tab*) 100 mg PO DAILY [facility] Last Admin: 10/21/18 09:07 Dose: 100 mg Vital Signs - 8 hr 10/21/18 10/21/18 10/21/18 02:57 03:14 05:14 Temperature 97.7 F Pulse Rate 64 60 Respiratory 18 Rate Blood Pressure 88/47 86/48 130/67 (mmHg) O2 Sat by Pulse 90 Oximetry 10/21/18 10/21/18 06:12 09:09 Temperature 97.1 F Pulse Rate 63 Respiratory 18 14 Rate Blood Pressure 109/63 (mmHg) O2 Sat by Pulse 89 Oximetry Oxygen Devices in Use Now: Nasal Cannula Appearance: Chronically ill appearing male, sitting up in bed, alert, oriented to self but confused to place and time and situation, NAD Eyes: PERRLA Ears/Nose/Mouth/Throat: Clear Oropharnyx, - - dry oral mucosa Neck: NL Appearance and Movements; NL JVP, Trachea Midline Respiratory: Symmetrical Chest Expansion and Respiratory Effort, Clear to Auscultation Cardiovascular: NL Sounds; No Murmurs; No JVD, RRR Abdominal: NL Sounds; No Tenderness; No Distention Extremities: No Edema Skin: No Rash or Ulcers Neurological: NL Muscle Strength and Tone, - - Alert, oriented to self Lines/Tubes/Other Access: Clean, Dry and Intact PICC Line Nutrition: Taking PO's Result Diagrams: 10/20/18 03:53 10/20/18 03:53 Microbiology and Other Data: Microbiology 10/12/18 16:23 Aerobic Blood Culture - Final Blood Venous No Growth Day 5 Anaerobic Blood Culture - Final No Growth Day 5 10/12/18 16:23 Aerobic Blood Culture - Final Blood Venous No Growth Day 5 Anaerobic Blood Culture - Final No Growth Day 5 10/12/18 23:06 Urine Culture - Final Urine No Growth (<1,000 CFU/mL) 10/12/18 23:00 Nasal Screen MRSA (PCR) - Final Nasal Mrsa Not Detected Assess/Plan/Problems-Billing Assessment: 63 yo male with PMH of chronic etoh abuse, hx of CVA with resultant vascular dementia who presented to [place] [facility] [place]12/18 from [facility] in which he was transferred for concern of confusion, CP, SOB. He was seen in the [place] ER the night before with a dx of gastritis. On admission he was found to have AMS, possible SIRs of unclear etiology. He then declined the night of admission and was transferred to the ICU for increasing ams, possible sepsis, alcohol withdrawal complicated by acute respiratory failure requiring prolonged intubation, acute encephalopathy, alcohol withdrawal - extubated 10/17 and transferred out of ICU 10/18 to medical floor. - Patient Problems (1) Acute respiratory failure Code(s): J96.00 - ACUTE RESPIRATORY FAILURE, UNSP W HYPOXIA OR HYPERCAPNIA Comment: Resolved Intubated for acute respiratory failure for more of a concern for AMS. Was treated with Zosyn, azithro, vanco for possible pna Extubated 10/17, doing well. Continue on 4L NC. Continue to attempt to wean O2. Lungs CTA. Blood cx, UTI cx negative (2) Acute encephalopathy Code(s): G93.40 - ENCEPHALOPATHY, UNSPECIFIED SNOMED Code(s): 20163171 Comment: Continues to be confused ICU delirium vs acute toxic encephalopathy in the setting of ETOH withdrawal. Did have elevated ammonia but having daily BMs, and trending down, possible hepatic in nature? Hx of vascular dementia. Ammonia levels previous elevated, have trended down. Neurology consult. Did not recommend LP. Suspected toxic metabolic encephalopathy. B12 levels slightly elevated, folate wnls, B1 level pending Continue thiamine (3) Epigastric abdominal pain Code(s): R10.13 - EPIGASTRIC PAIN Comment: Denies today Stool occult negative Continue PPI (4) Hypokalemia Code(s): E87.6 - HYPOKALEMIA Comment: K+ 3.2 Ordered daily repletion Continue to follow (5) History of CVA (cerebrovascular accident) Code(s): Z86.73 - PRSNL HX OF TIA (TIA), AND CEREB INFRC W/O RESID DEFICITS Comment: Continue Pletal, Plavix, Lipitor (6) Vascular dementia Code(s): F01.50 - VASCULAR DEMENTIA WITHOUT BEHAVIORAL DISTURBANCE Comment: Supportive tx prior to hospitalization Per porter sample case, he was A+O x3, residing in Assisted Living Continue Aricept Continue Seroquel at bedtime (7) DVT prophylaxis Comment: HSQ Status and Disposition: Inpatient, most likely will require SNF. Attending: Feliciano Carrillo
--- NOTE | 2018-10-21 17:40 | PN ---
Hospitalist Progress Note Date of Service: 10/21/18 Checked ABG to re-evaluate for additional contributors to persistent AMS. ABG reveals respiratory alkalosis, likely secondary to hypoxia which has been present on admission (treated for PNA). Continue to monitor. Patient remains alert, with oxygen requirements, and has confusion though it is not worsening.
[2018-10-21] MEDS: QUEtiapine TAB* 25 MG PO SCH (20:18)
[2018-10-21] MEDS: Atorvastatin* 10 MG TAB PO SCH (20:18)
[2018-10-22] MEDS: Heparin VIAL(*) 5000 UNITS/ML VIAL (FIVE THOUSAND) SUBCUT SCH ×3 (06:15→21:22)
[2018-10-22 06:56] LABS: BUN/Creatinine Ratio 13.6 (8-20); EGFR African American 166.8 (>60); EGFR Non-African American 137.9 (>60); Potassium 3.7 mmol/L (3.5-5.0)
[2018-10-22] MEDS: Gabapentin CAP(*) 100 MG PO SCH ×2 (07:39→21:20)
[2018-10-22] MEDS: Potassium Chlor TAB* 20 MEQ TAB.ER PO SCH ×2 (07:40→21:21)
[2018-10-22] MEDS: Cilostazol TAB* 100 MG PO SCH ×2 (07:40→21:20)
[2018-10-22] MEDS: Famotidine TAB* 20 MG PO SCH ×2 (07:40→21:22)
[2018-10-22] MEDS: Thiamine TAB* 100 MG TAB PO SCH (07:40)
[2018-10-22] MEDS: Pantoprazole TAB * 40 MG TAB PO SCH (07:41)
[2018-10-22] MEDS: Donepezil TAB* 5 MG PO SCH (07:41)
[2018-10-22] MEDS: Folic Acid TAB* 1 MG PO SCH (07:41)
[2018-10-22] MEDS: Clopidogrel TAB* 75 MG PO SCH (07:41)
--- NOTE | 2018-10-22 14:02 | PN ---
Subjective Date of Service: 10/22/18 Interval History: Patient cannot account for himself. He has no complaints, states he is walking, does not need O2. When he takes off O2, sats drop to high 80s Family History: Unchanged from Admission Social History: Unchanged from Admission Past Medical History: Unchanged from Admission Objective Active Medications: Atorvastatin Calcium (Lipitor*) 5 mg PO BEDTIME [facility] Last Admin: 10/21/18 20:18 Dose: 5 mg Cilostazol (Pletal Tab*) 50 mg PO BID [facility] Last Admin: 10/22/18 07:40 Dose: 50 mg Clopidogrel Bisulfate (Plavix Tab*) 75 mg PO DAILY [facility] Last Admin: 10/22/18 07:41 Dose: 75 mg Donepezil HCl (Aricept Tab*) 5 mg PO DAILY [facility] Last Admin: 10/22/18 07:41 Dose: 5 mg Famotidine (Pepcid Tab*) 20 mg PO BID [facility]; Protocol Last Admin: 10/22/18 07:40 Dose: 20 mg Folic Acid (Folvite Tab*) 1 mg PO DAILY [facility] Last Admin: 10/22/18 07:41 Dose: 1 mg Gabapentin (Neurontin Cap(*)) 100 mg PO BID [facility] Last Admin: 10/22/18 07:39 Dose: 100 mg Heparin Sodium (Porcine) (Heparin Vial(*)) 5,000 units SUBCUT Q8HR [facility] Last Admin: 10/22/18 13:45 Dose: 5,000 units Heparin Sodium (Porcine) (Heparin Flush Picc/Ml/Cvc(*)) 1 - 3 ml FLUSH 0600, 1800 [facility]; Protocol Last Admin: 10/22/18 06:15 Dose: 3 ml Pantoprazole Sodium (Protonix Tab*) 40 mg PO DAILY [facility] Last Admin: 10/22/18 07:41 Dose: 40 mg Potassium Chloride (Klor Con Er Tab*) 20 meq PO BID [facility] Last Admin: 10/22/18 07:40 Dose: 20 meq Quetiapine Fumarate (Seroquel Tab*) 25 mg PO BEDTIME [facility] Last Admin: 10/21/18 20:18 Dose: 25 mg Thiamine HCl (Vitamin B-1 Tab*) 100 mg PO DAILY [facility] Last Admin: 10/22/18 07:40 Dose: 100 mg Vital Signs - 8 hr 10/22/18 10/22/18 10/22/18 07:34 07:39 07:46 Temperature 36.8 C Pulse Rate 62 Respiratory 14 18 18 Rate Blood Pressure 98/57 (mmHg) O2 Sat by Pulse 92 Oximetry 10/22/18 10/22/18 11:38 11:59 Temperature 36.7 C Pulse Rate 80 Respiratory 16 16 Rate Blood Pressure (mmHg) O2 Sat by Pulse 93 Oximetry Oxygen Devices in Use Now: Nasal Cannula Appearance: alert, no distress Eyes: No Scleral Icterus Neck: Trachea Midline Respiratory: Clear to Auscultation Cardiovascular: NL Sounds; No Murmurs; No JVD Abdominal: NL Sounds; No Tenderness; No Distention Neurological: - Lines/Tubes/Other Access: Clean, Dry and Intact Peripheral IV Nutrition: Taking PO's - oriented to self, think's he's in [place] Result Diagrams: 10/20/18 03:53 10/22/18 06:30 Additional Lab and Data: Laboratory Tests 10/19/18 10/21/18 06:29 17:10 ABG pH 7.49 H ABG pCO2 37 ABG pO2 65 L Whole Bld Vitamin B1 154 Assess/Plan/Problems-Billing Assessment: 63 yo male with PMH of chronic etoh abuse, hx of CVA with resultant vascular dementia, admitted w/ resp failure and encephalopathy - Patient Problems (1) Acute respiratory failure Current Visit: Yes Status: Acute Priority: High Code(s): J96.00 - ACUTE RESPIRATORY FAILURE, UNSP W HYPOXIA OR HYPERCAPNIA SNOMED Code(s): 43242637 Comment: -Resolved -Now has respiratory alkalosis on ABG yesterday, due to tachypnea -Continue on 4L NC. Continue to attempt to wean O2. 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 -Hx of vascular dementia. (3) History of CVA (cerebrovascular accident) Current Visit: Yes Status: Chronic Priority: Medium Code(s): Z86.73 - PRSNL HX OF TIA (TIA), AND CEREB INFRC W/O RESID DEFICITS SNOMED Code(s): 761266889 Comment: Continue Pletal, Plavix, Lipitor (4) DVT prophylaxis Current Visit: Yes Status: Acute Priority: Low Code(s): KJX0028 - SNOMED Code(s): 161456827 Comment: HSQ Status and Disposition: Inpatient, will require SNF or adult home.
[2018-10-22] MEDS: Atorvastatin* 10 MG TAB PO SCH (21:20)
[2018-10-22] MEDS: QUEtiapine TAB* 25 MG PO SCH (21:21)
[2018-10-23] MEDS: Heparin VIAL(*) 5000 UNITS/ML VIAL (FIVE THOUSAND) SUBCUT SCH (06:47)
[2018-10-23] MEDS: Potassium Chlor TAB* 20 MEQ TAB.ER PO SCH (09:52)
[2018-10-23] MEDS: Thiamine TAB* 100 MG TAB PO SCH (09:52)
[2018-10-23] MEDS: Gabapentin CAP(*) 100 MG PO SCH (09:52)
[2018-10-23] MEDS: Cilostazol TAB* 100 MG PO SCH (09:53)
[2018-10-23] MEDS: Donepezil TAB* 5 MG PO SCH (09:53)
[2018-10-23] MEDS: Folic Acid TAB* 1 MG PO SCH (09:53)
[2018-10-23] MEDS: Famotidine TAB* 20 MG PO SCH (09:53)
[2018-10-23] MEDS: Pantoprazole TAB * 40 MG TAB PO SCH (09:53)
[2018-10-23] MEDS: Clopidogrel TAB* 75 MG PO SCH (09:53)
[2018-10-23 13:25] VITALS: BP 99/62
--- NOTE | 2018-10-23 14:31 | TRS ---
CC: Staff physician at [facility], Dr. Pittman [place] TRANSFER SUMMARY: DATE OF ADMISSION: 10/12/18 DATE OF DISCHARGE: 10/23/18 PRIMARY CARE PHYSICIAN: Dung [place] PRIMARY DIAGNOSIS: Hypercapnic respiratory failure requiring prolonged intubation from 10/12/18 to 10/17/18. SECONDARY DIAGNOSES: 1. Acute encephalopathy. 2. Multi-infarct dementia. 3. Depression. 4. Peripheral vascular disease. 5. Chronic obstructive pulmonary disease. 6. Gastritis. MEDICATIONS ON DISCHARGE: 1. Acetaminophen 1000 mg p.o. b.i.d. p.r.n. pain. 2. Maalox 30 mL q.4 hours p.r.n. dyspepsia. 3. Proventil HFA 2 puffs q.i.d. p.r.n. wheezing. 4. Aspirin 81 mg p.o. daily. 5. Calcium polycarbophil 625 mg p.o. b.i.d. 6. Pletal 50 mg p.o. b.i.d. 7. Plavix 75 mg p.o. daily. 8. Diphenhydramine 25 mg p.o. q.h.s. p.r.n. insomnia. 9. Colace 100 mg p.o. b.i.d. 10. Aricept 5 mg p.o. daily. 11. Advair Diskus 250/50 one inhalation b.i.d. 12. Gabapentin 300 mg p.o. t.i.d. 13. Guaifenesin 10 mL b.i.d. p.r.n. cough. 14. Triple antibiotic neomycin, polymyxin, and bacitracin one application topically b.i.d. to affected areas. 15. MiraLAX 17 g p.o. q. day p.r.n. constipation. 16. Ranitidine 150 mg p.o. b.i.d. 17. Simvastatin 10 mg p.o. q.h.s. 18. Folic acid 1 mg p.o. daily. 19. Pantoprazole 40 mg p.o. daily for 1 month. 20. Potassium chloride 20 mEq p.o. b.i.d. 21. Seroquel 25 mg p.o. q.h.s. 22. Thiamine 100 mg p.o. daily. HOSPITAL COURSE: The patient presented in transfer from [facility] Emergency Department with confusion and pallor. There he lived at the [facility] in [place] and was known to have been consuming alcohol heavily. There was some initial concern about gastritis or ulcer given his abdominal pain and pallor. On admission, his hematocrit was 41% and it did fall to 28% with hydration and then atilio to 33%. He did not receive any blood transfusions and he was given IV and an oral pantoprazole to treat a possible ulcer. He had a negative stool guaiac on 10/20/18. Further gastroenterology workup could be done as an outpatient, but it was not deemed to be necessary as an inpatient. The patient had acute hypercapnic respiratory failure on admission and required intubation. This was thought to be due to a COPD exacerbation. The patient received nebulizers, steroids, supportive care in the intensive care unit. He was treated with azithromycin and ceftriaxone for possible community acquired pneumonia. A chest CT on admission showed patchy areas of focal consolidation of the left upper and left lower lobes and to the extent of the right lower lobe possibly related to infection. Followup chest x-rays were obtained several times due to the intubation status. The last chest x-ray on 10/18/18 showed consisting left lower lobe infiltrate. The patient completed a week of IV antibiotics and thus required no further antibiotics. When the patient was intubated and after intubation, the patient had persisting altered mental status. He was seen in consultation by Dr. Cerrato of Neurology. The differential of this confusion included alcohol withdrawal, metabolic encephalopathy related to ammonia and other substances. He also had elevated lactic acid on admission and specifically the ammonia level was 75 at a peak during this hospital stay, but fell to 43 on discharge without any intervention. The patient was briefly on the [place] protocol, but had a negative alcohol level on admission and was not thought to be in delirium tremens later in the ICU. Dr. Mcclendon did suggest at some point getting an EEG and a MRI to further workup the patient's altered mental status, but this was not deemed to be necessary during the hospital stay. The patient's pulmonary status improved. He was extubated and moved to the medical floor. He, at the last 2 days of hospital stay, was pleasant and confused, oriented only to self. He was cooperative other than taking off his oxygen at times. He does continue to require 4 L/m of nasal canula oxygen. DISPOSITION: [facility] where he will need to be watched for wandering as he was not oriented to place or time. He will need continued oxygen support with the goal oxygen saturation of around 89% to 92%. DIET: Should be low-salt and low-fat due to peripheral vascular disease. ACTIVITY: As tolerated. There is no weight-bearing restrictions. TIME SPENT: More than 35 minutes were consumed getting this discharge plan, meeting with the patient, and coordinating the care with facility. [id number]/[facility] #: [id number] [place]
== END 2018-10-23 14:15 | DRG 207 ==
LOC: ED 12:37 → MED 17:44 → OBSVTOIN 17:44 → ICU 22:00 → MED 10-18 14:30
PROVIDERS: ADMIT Student in an Organized Health Care Education/Training Program; ATTEND Internal Medicine
PROC: 0BH17EZ Insertion of Endotracheal Airway into Trachea, Via Natural or Artificial Opening (ICD-10-PCS; principal; 2018-10-12)
PROC: 5A1955Z Respiratory Ventilation, Greater than 96 Consecutive Hours (ICD-10-PCS; 2018-10-12)
PROC: 0BP1XDZ Removal of Intraluminal Device from Trachea, External Approach (ICD-10-PCS; 2018-10-17)
DX: J96.22 Acute and chronic respiratory failure with hypercapnia (principal); J18.1 Lobar pneumonia, unspecified organism; G93.41 Metabolic encephalopathy; J44.0 Chronic obstructive pulmonary disease with (acute) lower respiratory infection; F10.231 Alcohol dependence with withdrawal delirium; E87.3 Alkalosis; J44.1 Chronic obstructive pulmonary disease with (acute) exacerbation; F01.50 Vascular dementia, unspecified severity, without behavioral disturbance, psychotic disturbance, mood disturbance, and anxiety; I73.9 Peripheral vascular disease, unspecified; R10.13 Epigastric pain; K29.70 Gastritis, unspecified, without bleeding; R40.2353 Coma scale, best motor response, localizes pain, at hospital admission; Y90.9 Presence of alcohol in blood, level not specified; R40.2133 Coma scale, eyes open, to sound, at hospital admission; R40.2243 Coma scale, best verbal response, confused conversation, at hospital admission; F32.9 Major depressive disorder, single episode, unspecified; Z88.5 Allergy status to narcotic agent; Z91.041 Radiographic dye allergy status; Z91.013 Allergy to seafood; Z79.02 Long term (current) use of antithrombotics/antiplatelets; Z79.82 Long term (current) use of aspirin; E87.6 Hypokalemia; I95.9 Hypotension, unspecified; Z86.73 Personal history of transient ischemic attack (TIA), and cerebral infarction without residual deficits
CPT/HCPCS: 36415; 36600; 70450; 71045; 71250; 80048; 80053; 80076; 80307; 80320; 81003; 81015; 82140; 82272; 82533; 82550; 82553; 82607; 82746; 82803; 83010; 83605; 83735; 84100; 84425; 84484; 85025; 85027; 85379; 85610; 85652; 85730; 86140; 87040; 87086; 87641; 93970; 94003; 94640; 99285; A9270-GY; C1751; G0480; G8978-GP-CM; G8979-GP-CI; G8987-GO-CK; G8988-GO-CI; J0330; J0456; J0696; J1644; J2060; J2250; J2543; J2704; J2930; J3370; J3411; J3480

== ENCOUNTER 2020-04-05 10:58 | Inpatient (IN) ==
[2020-04-05 11:42] LABS: ABS Basophils 0.1 10^3/ul (0-0.2); ABS Eosinophils 0.2 10^3/ul (0-0.6); ABS Lymphocytes 1.6 10^3/ul (1.0-4.8); ABS Monocytes 0.6 10^3/ul (0-0.8); Eosinophil % 2.9 %; Hematocrit 37 % (42-52); Hemoglobin 12.3 g/dL (14.0-18.0); Lymphocyte % 27.4 %; Mean Corpuscular HGB Conc 33 g/dL (31-36); Mean Corpuscular Hemoglobin 29 pg (27-31); Mean Corpuscular Volume 87 fL (80-94); Mean Platelet Volume 6.5 fL (7.4-10.4); Nucleated Red Blood Cells % 0.2; Platelet Count 214 10^3/uL (150-450); Red Blood Count 4.24 10^6 /uL (4.18-5.48); Red Cell Distribution Width 15 % (10-15); White Blood Count 5.9 10^3/uL (3.5-10.8)
[2020-04-05 12:01] LABS: Albumin 4.3 g/dL (3.2-5.2); BUN/Creatinine Ratio 12.3 (8-20); Calcium 8.9 mg/dL (8.6-10.3); EGFR African American 148.3 (>60); EGFR Non-African American 122.5 (>60); Globulin 2.2 g/dL (2-4); Potassium 3.9 mmol/L (3.5-5.0); Total Bilirubin 0.4 mg/dL (0.2-1.0); Total Protein 6.5 g/dL (6.4-8.9)
[2020-04-05] MEDS ORDERED: Albuterol HFA INHALER 8 gm MDI INH PRN (15:41)
[2020-04-05] MEDS: Enoxaparin 40 MG/0.4 ML SYR SUBCUT SCH (17:17)
[2020-04-05] MEDS ORDERED: Polyethylene Glycol 3350 17 GM PACKET PO PRN (17:27)
[2020-04-05] MEDS ORDERED: Magnesium Hydroxide LIQ 30 ML UDC PO PRN (17:27)
[2020-04-05] MEDS ORDERED: guaiFENesin 100 mg/5 ml LIQ unit dose cup PO PRN (17:27)
[2020-04-05] MEDS: Mometasone/Formoter 200/5 MDI INH SCH (19:38)
[2020-04-05] MEDS: CMCS:Simvastatin 10 mg TAB (NF) PO SCH (19:40)
[2020-04-05] MEDS: Calcium Polycarbophil 625mg TB PO SCH (19:40)
[2020-04-05] MEDS ORDERED: Calcium Polycarbophil 625mg TB PO SCH (21:00)
[2020-04-05 22:48] LABS: Urine Appearance Clear; Urine Bilirubin Negative (Negative); Urine Blood Negative (Negative); Urine Color Straw; Urine Glucose Negative (Negative); Urine Ketones Negative (Negative); Urine Nitrite Negative (Negative); Urine Protein Negative (Negative); Urine Specific Gravity 1.003 (1.010-1.030); Urine Urobilinogen Negative (Negative)
[2020-04-06] MEDS: Aspirin EC 81 mg TAB.EC (enteric coated) PO SCH (08:04)
[2020-04-06] MEDS: Calcium Polycarbophil 625mg TB PO SCH ×2 (08:04→19:27)
[2020-04-06] MEDS: Mometasone/Formoter 200/5 MDI INH SCH ×2 (08:15→19:07)
[2020-04-06] MEDS: Enoxaparin 40 MG/0.4 ML SYR SUBCUT SCH (17:41)
[2020-04-06] MEDS: CMCS:Simvastatin 10 mg TAB (NF) PO SCH (19:26)
[2020-04-07] MEDS ORDERED: Haloperidol 5 mg/ml SDV IV/IM 5 MG/ML AMP IM ONE ×2 (01:08→21:58)
[2020-04-07] MEDS: Mometasone/Formoter 200/5 MDI INH SCH ×2 (07:31→19:46)
[2020-04-07] MEDS: Aspirin EC 81 mg TAB.EC (enteric coated) PO SCH (08:37)
[2020-04-07] MEDS: Calcium Polycarbophil 625mg TB PO SCH ×2 (08:37→19:49)
[2020-04-07] MEDS: Enoxaparin 40 MG/0.4 ML SYR SUBCUT SCH (17:43)
[2020-04-07] MEDS: CMCS:Simvastatin 10 mg TAB (NF) PO SCH (19:48)
[2020-04-07] MEDS ORDERED: Haloperidol 5 mg/ml SDV IV/IM 5 MG/ML AMP ONE (22:03)
[2020-04-08] MEDS: Mometasone/Formoter 200/5 MDI INH SCH ×2 (07:30→20:37)
[2020-04-08] MEDS: Aspirin EC 81 mg TAB.EC (enteric coated) PO SCH (09:15)
[2020-04-08] MEDS: Calcium Polycarbophil 625mg TB PO SCH ×2 (09:15→20:20)
[2020-04-08] MEDS: Enoxaparin 40 MG/0.4 ML SYR SUBCUT SCH (17:09)
[2020-04-08] MEDS: CMCS:Simvastatin 10 mg TAB (NF) PO SCH (20:20)
[2020-04-09] MEDS: Mometasone/Formoter 200/5 MDI INH SCH ×2 (07:04→19:22)
[2020-04-09] MEDS: Calcium Polycarbophil 625mg TB PO SCH ×2 (09:24→19:36)
[2020-04-09] MEDS: Aspirin EC 81 mg TAB.EC (enteric coated) PO SCH (09:24)
[2020-04-09] MEDS: Enoxaparin 40 MG/0.4 ML SYR SUBCUT SCH (17:28)
[2020-04-09] MEDS: CMCS:Simvastatin 10 mg TAB (NF) PO SCH (19:36)
[2020-04-10] MEDS: Mometasone/Formoter 200/5 MDI INH SCH (07:47)
[2020-04-10 08:51] VITALS: BP 110/62
[2020-04-10] MEDS: Calcium Polycarbophil 625mg TB PO SCH (09:14)
[2020-04-10] MEDS: Aspirin EC 81 mg TAB.EC (enteric coated) PO SCH (09:14)
== END 2020-04-10 13:30 | disposition home or self-care (01) | DRG 884 ==
LOC: ED 10:58 → MED 14:09
PROVIDERS: ADMIT Internal Medicine; ATTEND Internal Medicine